=== PATIENT | male | born 1935 | race Caucasian/White ===

== ENCOUNTER 2016-12-16 08:42 | Inpatient (IN) | payer MEDICARE, OTHER ==
[~2016-12-16 08:42] MED LIST: Buffered Lidocaine 1% SYRIN* 3 ML/SYR SYRINGE INTRADERM ONE
[2016-12-16] MEDS ORDERED: Clindamycin 900 MG IVPREMIX(* 900 MG/50 ML SDV IV ONE (08:43)
[2016-12-16] MEDS ORDERED: Bacitracin IV* 50,000 UNITS INJ ONE (09:28)
[2016-12-16] MEDS ORDERED: Thrombin 5,000 UNITS* 1 APPLIC KIT - topical use - TOPICAL ONE (09:28)
[2016-12-16] MEDS ORDERED: Lidocain 1% EPI 1:100,000 * 30 ML MDV ONE (09:28)
[2016-12-16] MEDS ORDERED: Atracurium* 10 MG/ML 10 ML VIAL ONE (10:27)
[2016-12-16] MEDS ORDERED: fentaNYL* 50 MCG/ML 2 ML VIAL (100 MCG VIAL) ONE (10:27)
[2016-12-16] MEDS ORDERED: Ondansetron INJ* 2 MG/ML VIAL ONE (10:28)
[2016-12-16] MEDS ORDERED: Lidocaine 2% PF* 5 ML VIAL ONE (10:28)
[2016-12-16] MEDS ORDERED: Dexamethasone IV* 4 MG/ML 1 ML (4 MG) ONE (10:28)
[2016-12-16] MEDS ORDERED: Propofol* 10 MG/ML 20 ML BTL IV PUSH ONE ×2 (10:28→11:54)
[2016-12-16] MEDS ORDERED: Atropine 1MG/ML INJ* 1 ML VIAL ONE (10:54)
[2016-12-16] MEDS ORDERED: EPHEDrine (Pressors)* 50 MG/ML VIAL ONE (11:04)
[2016-12-16] MEDS ORDERED: Phenylephrine IV* 40 MCG/ML 10 ML SYRINGE ONE (11:08)
[2016-12-16] MEDS ORDERED: DiMENhydriNATE IV* 50 MG/ML VIAL IV PUSH PRN (11:37)
[2016-12-16] MEDS ORDERED: fentaNYL* 50 MCG/ML 2 ML VIAL (100 MCG VIAL) IV PRN (11:37)
[2016-12-16] MEDS ORDERED: Acetaminophen TAB* 325 MG PO PRN (11:55)
[2016-12-16] MEDS ORDERED: ALPRAZolam TAB* 0.5 MG PO PRN (11:57)
[2016-12-16] MEDS ORDERED: Morphine INJ* 4 MG/ML 1 ML SYRINGE IV PRN (12:04)
[2016-12-16] MEDS ORDERED: HYDROmorphone* 1 MG/ML 1 ML SYR ONE (13:04)
[2016-12-16] MEDS: HYDROmorphone* 1 MG/ML 1 ML SYR IV PRN ×2 (13:04→13:45)
--- NOTE | 2016-12-16 14:18 | RAD ---
INDICATION: Decompressive laminectomy L3-L4 COMPARISON: Lumbar spine August 07, 2016 TECHNIQUE: A single crosstable lateral portable view of the lumbar spine taken at 1100 hours is submitted FINDINGS: There are retractors and there is a hemostat projected over the posterior soft tissues at the L3-L4 level
[2016-12-16] MEDS: IPRATROPIUM BROMIDE BOTH NARES SCH ×3 (16:11→21:27)
[2016-12-16] MEDS: Sucralfate TAB* 1 GM PO SCH ×2 (16:11→21:26)
[2016-12-16] MEDS: HYDROcodone/ACETAMIN 5-325 MG* 1 TAB PO PRN ×2 (17:50→21:48)
[2016-12-16] MEDS: Omeprazole CAP* 20 MG PO SCH (21:26)
[2016-12-17] MEDS: HYDROcodone/ACETAMIN 5-325 MG* 1 TAB PO PRN ×3 (01:48→13:21)
[2016-12-17] MEDS: Levothyroxine TAB* 25 MCG TAB PO SCH (07:37)
[2016-12-17] MEDS: IPRATROPIUM BROMIDE BOTH NARES SCH ×3 (08:43→20:26)
[2016-12-17] MEDS: Omeprazole CAP* 20 MG PO SCH ×2 (08:44→20:26)
[2016-12-17] MEDS: Sucralfate TAB* 1 GM PO SCH ×3 (08:44→16:53)
[2016-12-17] MEDS: Montelukast Sodium TAB* 10 MG PO SCH (08:44)
[2016-12-17] MEDS: Cetirizine* 10 MG TAB PO SCH (08:44)
[2016-12-17] MEDS: Sertraline* 100 MG TAB PO SCH (08:44)
[2016-12-17] MEDS ORDERED: Atorvastatin* 10 MG TAB PO SCH (09:00)
[2016-12-17] MEDS ORDERED: Tamsulosin CAP* 0.4 MG PO SCH (09:00)
--- NOTE | 2016-12-17 09:25 | PN ---
Progress Note - Progress Note SOAP: Subjective: []POD # 1 C/O incisional pain Pre op leg pain better Objective: []Moderate wound drainage Neuro intact Assessment: []Satis post op course Plan: []will convert to inpatient Home when drainage slows
[2016-12-17] MEDS: Tamsulosin CAP* 0.4 MG PO SCH (18:42)
[2016-12-17] MEDS: Atorvastatin* 10 MG TAB PO SCH (20:26)
[2016-12-17] MEDS ORDERED: Ondansetron INJ* 2 MG/ML VIAL IV PRN (22:38)
[2016-12-17] MEDS ORDERED: Ondansetron INJ* 2 MG/ML VIAL ONE (22:44)
[2016-12-17] MEDS: Cyclobenzaprine TAB* 10 MG PO PRN (23:24)
[2016-12-18] MEDS: HYDROcodone/ACETAMIN 5-325 MG* 1 TAB PO PRN ×3 (03:50→20:02)
[2016-12-18] MEDS: Levothyroxine TAB* 25 MCG TAB PO SCH (07:38)
--- NOTE | 2016-12-18 08:09 | PN ---
Progress Note - Progress Note SOAP: Subjective: [This is an 81 year old male s/p decompressive lumbar laminectomy L3-4 for spinal stenosis POD #2. He complains of incisional back pain. Pre-operative lower extremity symptoms are improving. Per the nurse and patient's , he was confused last night after taking the [place]; not aware of location and who people were. He has also been slightly unsteady ambulating to and from the bathroom. He has not been ambulating outside of the room more than once. He is eating and drinking without difficulty. Pain managed with oral medications. ] Objective: [ Vital Signs: Temp Pulse Resp BP Pulse Ox 98.3 F 99 16 160/91 93 12/18/16 07:12 12/18/16 07:12 12/18/16 08:00 12/18/16 07:12 12/18/16 08:00 General: Alert and oriented. Laying in bed, no distress. ] Assessment: [Satisfactory post-op course. Unsteady ambulation. ] Plan: [1. PT to evaluate today. 2. Hopefully discharge home tomorrow. 3. Continue pain management. ]
[2016-12-18] MEDS: Sucralfate TAB* 1 GM PO SCH ×3 (08:14→16:57)
[2016-12-18] MEDS: IPRATROPIUM BROMIDE BOTH NARES SCH ×3 (09:01→20:55)
[2016-12-18] MEDS: Omeprazole CAP* 20 MG PO SCH ×2 (09:02→20:53)
[2016-12-18] MEDS: Cetirizine* 10 MG TAB PO SCH (09:02)
[2016-12-18] MEDS: Montelukast Sodium TAB* 10 MG PO SCH (09:02)
[2016-12-18] MEDS: Sertraline* 100 MG TAB PO SCH (09:02)
[2016-12-18] MEDS: Cyclobenzaprine TAB* 10 MG PO PRN (13:45)
[2016-12-18] MEDS: Tamsulosin CAP* 0.4 MG PO SCH (18:26)
[2016-12-18] MEDS: Atorvastatin* 10 MG TAB PO SCH (20:53)
[2016-12-19] MEDS: Sucralfate TAB* 1 GM PO SCH ×2 (05:56→11:00)
[2016-12-19] MEDS ORDERED: Levothyroxine TAB* 25 MCG TAB PO SCH (06:00)
[2016-12-19] MEDS: HYDROcodone/ACETAMIN 5-325 MG* 1 TAB PO PRN (07:03)
--- NOTE | 2016-12-19 07:43 | PN ---
Progress Note - Progress Note SOAP: Subjective: [This is an 81 year old male s/p decompressive lumbar laminectomy L3-4, POD# 3. He complains of soreness at the incision site. Pre-operative symptoms are improving. He is ambulating with assistance from staff and a rolling walker. He has been evaluated by PT. He is eating and drinking well. Denies headache, nausea, vomiting and chest pain. ] Objective: [ Vital Signs: Temp Pulse Resp BP Pulse Ox 97.6 F 86 18 146/85 94 12/19/16 03:15 12/19/16 03:15 12/19/16 07:16 12/19/16 03:15 12/19/16 07:16 General: Alert and oriented. No distress. Neuro: Motor and sensory intact. Incision: Intact and without infection. ZAKIA drain removed today. ZAKIA drain output 12/16/16 12/16/16 12/16/16 14:00 15:51 20:00 Output, ZAKIA #1 50 30 20 12/17/16 12/17/16 12/17/16 00:00 03:56 12:04 Output, ZAKIA #1 20 20 30 12/17/16 12/17/16 12/17/16 16:55 20:09 22:59 Output, ZAKIA #1 10 30 15 12/18/16 12/18/16 12/18/16 04:15 11:09 18:14 Output, ZAKIA #1 15 15 7 12/18/16 12/19/16 12/19/16 20:27 00:21 05:14 Output, ZAKIA #1 10 5 10 ] Assessment: [Satisfactory post-op. Pain well controlled with PO pain medications. ] Plan: [1. Discharge home today. 2. Discharge instructions including wound care and activity level were discussed with the patient.]
[2016-12-19] MEDS: Omeprazole CAP* 20 MG PO SCH (09:07)
[2016-12-19] MEDS: IPRATROPIUM BROMIDE BOTH NARES SCH (09:08)
[2016-12-19] MEDS: Sertraline* 100 MG TAB PO SCH (09:08)
[2016-12-19] MEDS: Montelukast Sodium TAB* 10 MG PO SCH (09:08)
[2016-12-19] MEDS: Cetirizine* 10 MG TAB PO SCH (09:08)
--- NOTE | 2016-12-19 11:48 | OP ---
OPERATIVE REPORT: DATE OF OPERATION: 12/16/16 DATE OF : 37 PRIMARY SURGEON: Woody Yoon MD MONUMENTAL STONEMASON: KIRAN Ramirez ANESTHESIA: General. PRE-OP DIAGNOSIS: Lumbar spinal stenosis, L3-4. POST-OP DIAGNOSIS: Lumbar spinal stenosis, L3-4. OPERATIVE PROCEDURE: Decompressive lumbar laminectomy, L3-4. DESCRIPTION OF OPERATION: After satisfactory general anesthesia was obtained, the patient was place d on the operating table in a prone position with the chest supported on the Kalia frame and the ba ck slightly flexed. The lumbar region was then clipped, prepped, and draped in a sterile manner for lumbar laminectomy and a skin incision outlined from L3-L4. This incision was infiltrated with 1% Xylocaine with epinephrine, after which it was turned down sharply to the level of the lumbar fascia . The fascia was divided along the spinous processes of L3 and L4, and the paraspinal musculature w as stripped away from these posterior elements using the periosteal elevator and monopolar cautery. An intraoperative x-ray was obtained verifying proper interspace localization after which the decom pression was begun by removing the spinous process of L3 and the superior aspect of the spinous proc ess of L4 with the Leksell rongeur. A Midas Eddi drill was then used to thin out the remaining porti on of the base of the spinous process of L3 as well as the medial facet complex. There was noted to be marked facet hypertrophy and overgrowth at this level. A decompression was then carried superio rly utilizing Kerrison rongeurs until the attachment of ligamentum flavum was taken down. The decom pression was carried out laterally with thickened ligament and bony overgrowth being removed. This was carried out until the L4 nerve roots were noted to be decompressed bilaterally. After assuring adequate hemostasis, wound was thoroughly irrigated after which a piece of Gelfoam was placed over t he laminectomy defect. A drain was placed in the epidural space and tunneled out toward the left si de. The fascia was reapproximated with 0 Vicryl suture. The subcutaneous tissue was closed with 3- 0 Vicryl suture and the skin closed with skin clips. The estimated blood loss was less than 50 cc a nd the final sponge, padding, and needle counts were correct. The patient was taken to the recovery room, extubated and in stable condition. [id number]/[facility] #: [id number]
[2016-12-19 11:51] VITALS: BP 122/88
--- NOTE | 2016-12-20 01:25 | DS ---
DISCHARGE SUMMARY: DATE OF ADMISSION: 12/16/16 DATE OF DISCHARGE: 12/19/16 DISCHARGE DIAGNOSES: 1. Lumbar spinal stenosis. 2. Hypothyroidism. 3. Gastroesophageal reflux disease. SPECIAL PROCEDURE: Decompressive lumbar laminectomy at L3-4. HOSPITAL COURSE: This 81-year-old male was seen in the office with signs and symptoms of lumbar rad iculopathy consistent with spinal stenosis at L3-4. He failed to improve with conservative treatmen t and was admitted at this time for elective surgical intervention. On the day of admission, he was taken to surgery where under general anesthesia, a decompressive lumbar laminectomy at L3-4 operati on was carried out. Postoperatively, he was feeling well. Pain was well controlled with oral pain medication. He is ambulating with assistance from a walker. He was seen by Physical Therapy, evalu ated and treated. He is eating, drinking and voiding without difficulty. On the third postoperativ e day, he was discharged home to the care of his family. Discharge instructions including wound car e and activity level were discussed with the patient and provided. He will be seen in the office in approximately 7 to 10 days for followup and staple removal. DISCHARGE MEDICATIONS: [place] 5/325 mg 2 tabs by mouth every 4 hours as needed for pain. KIRAN GANNON [id number]/[facility] #: [id number]
== END 2016-12-19 12:40 | disposition home or self-care (01) | DRG 517 ==
LOC: OR 08:42 → SSU 09:22 → OBSVTOIN 12-17 09:22
PROVIDERS: ADMIT Neurological Surgery; ATTEND Neurological Surgery
PROC: 01NB0ZZ Release Lumbar Nerve, Open Approach (ICD-10-PCS; principal; 2016-12-19)
DX: M48.06 Spinal stenosis, lumbar region (principal); E03.9 Hypothyroidism, unspecified; K21.9 Gastro-esophageal reflux disease without esophagitis; M54.16 Radiculopathy, lumbar region; E66.9 Obesity, unspecified; N40.0 Benign prostatic hyperplasia without lower urinary tract symptoms; F41.9 Anxiety disorder, unspecified; Z88.0 Allergy status to penicillin; Z88.5 Allergy status to narcotic agent; Z88.8 Allergy status to other drugs, medicaments and biological substances; Z91.041 Radiographic dye allergy status; Z87.891 Personal history of nicotine dependence; Z68.32 Body mass index [BMI] 32.0-32.9, adult
CPT/HCPCS: 72100; A9270-GY; J0461; J1100; J1170; J2405; J2704; J3010

== ENCOUNTER 2018-03-31 06:09 | Day surgery (SDC) | payer MEDICARE, OTHER ==
--- NOTE | 2018-03-29 23:58 | HP ---
CC: Dr. Jones; Dr. Singletary * ADMITTING HISTORY AND PHYSICAL: DATE OF ADMISSION: 03/31/18 ADMITTING DIAGNOSIS: Bladder tumor. PLANNED PROCEDURE: Transurethral resection of bladder tumor. ADMITTING HISTORY AND PHYSICAL: John Morse is an 82-year-old gentleman who had initially undergone surgery for a superficial bladder cancer in 2007. 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 PAST MEDICAL HISTORY: Significant for: 1. Superficial bladder cancer. 2. BPH. 3. Coronary artery atheroma. 4. Spinal stenosis. 5. Mixed hyperlipidemia. 6. Osteoarthritis. 7. Chronic pain syndrome. 8. Hypothyroidism. MEDICATIONS: On admission include: 1. Ambien 5 mg at bedtime. 2. Finasteride 5 mg a day. 3. Toprol-XL 25 mg a day. 4. Omeprazole 40 mg b.i.d. 5. Methylphenidate 10 mg 1 tablet by mouth once or twice a day as needed. 6. Sertraline 50 mg daily. 7. Montelukast 10 mg daily. 8. Simvastatin 20 mg daily. 9. Fexofenadine 180 mg daily. 10. Naproxen 500 mg twice a day. 11. Levothyroxine 25 mcg daily. ALLERGIES AND INTOLERANCES: PENICILLIN, INTRAVENOUS CONTRAST, SEPTRA, OXYCODONE , BIAXIN and PERCOCET. PHYSICAL EXAMINATION GENERAL: Reveals a pleasant, elderly gentleman. VITAL SIGNS: Blood pressure is 142/86, pulse 60 per minute and regular, temperature 97.5, oxygen saturation 98% on room air. LUNGS: Clear bilaterally. CARDIOVASCULAR: Regular rate and rhythm. S1, S2. ABDOMEN: Soft without masses. IMPRESSION: An 82-year-old gentleman with recurrent superficial bladder tumor. PLAN: Planned procedure is transurethral resection of bladder. [id number]/[facility] #: [id number] MTDD
[~2018-03-31 06:09] MED LIST changes: +Buffered Lidocaine 0.9% SYRIN* 5 ML/SYR SYRINGE INTRADERM ONE; -Buffered Lidocaine 1% SYRIN* 3 ML/SYR SYRINGE INTRADERM ONE; +Dexamethasone IV* 4 MG/ML 1 ML (4 MG) IV SLOW PU ONE; +Ondansetron ODT TAB* 4 MG PO ONE
[2018-03-31] MEDS ORDERED: Dexamethasone IV* 4 MG/ML 1 ML (4 MG) ONE (06:10)
[2018-03-31] MEDS ORDERED: Buffered Lidocaine 0.9% SYRIN* 5 ML/SYR SYRINGE ONE (06:11)
[2018-03-31] MEDS ORDERED: Levofloxacin 500 MG IVPREMIX(* 500 MG/100 ML BAG IVPB ONE (06:11)
[2018-03-31] MEDS ORDERED: Ondansetron ODT TAB* 4 MG ONE (06:11)
[2018-03-31] MEDS ORDERED: Metoprolol Succinate XL TAB* 25 MG PO ONE (07:00)
[2018-03-31] MEDS ORDERED: Bupivacaine-MPF SPINAL* 7.5 MG/ML - 2ML AMP ONE (07:05)
[2018-03-31] MEDS ORDERED: Midazolam* 1 MG/ML 5 ML VIAL (5 MG) ONE (07:05)
[2018-03-31] MEDS ORDERED: Lidocaine 2% PF * 5 ML VIAL ONE (07:05)
[2018-03-31] MEDS ORDERED: Propofol* 10 MG/ML 20 ML BTL IV PUSH ONE (07:05)
[2018-03-31] MEDS ORDERED: fentaNYL* 50 MCG/ML 2 ML VIAL (100 MCG VIAL) ONE (07:05)
[2018-03-31] MEDS ORDERED: Phenylephrine INJ* 10 MG/ML 1 ML VIAL (10 MG) ONE (07:07)
[2018-03-31] MEDS ORDERED: EPHEDrine (Pressors)* 50 MG/ML VIAL ONE (07:07)
[2018-03-31] MEDS ORDERED: Bupivacaine 0.5% SDV PF* 30ML VIAL ONE (07:12)
[2018-03-31] MEDS ORDERED: Chloroprocaine 2%* 20 ML VIAL ONE (07:12)
[2018-03-31] MEDS ORDERED: fentaNYL* 50 MCG/ML 2 ML VIAL (100 MCG VIAL) IV PRN (08:06)
[2018-03-31] MEDS ORDERED: Ondansetron INJ* 2 MG/ML VIAL IV PRN (08:06)
[2018-03-31] MEDS ORDERED: HYDROmorphone INJ* 1 MG/ML CARPUJECT SYRINGE IV PRN (08:06)
[2018-03-31] MEDS ORDERED: Naloxone* 0.4 MG/ML 1 ML VIAL IV PRN (08:06)
[2018-03-31] MEDS ORDERED: Furosemide IV* 10 MG/ML 2 ML VIAL (20 MG) ONE (08:08)
[2018-03-31] MEDS ORDERED: mitoMYcin PWD* 40 MG in Sterile Water for Inj* 40 ML IRRIGATION ONE (10:00)
[2018-03-31 11:51] VITALS: BP 154/78
--- NOTE | 2018-03-31 22:24 | OP ---
CC: Dr. Pinto * DATE OF OPERATION: 03/31/18 - [facility] DATE OF : 37 SURGEON: Bart Garnett MD ANESTHESIOLOGIST: Dr. Lorenz. ANESTHESIA: Spinal. PRE-OP DIAGNOSIS: Bladder tumor. POST-OP DIAGNOSIS: Bladder tumor. OPERATIVE PROCEDURE: 1. Cystoscopy. 2. Transurethral resection and fulguration of bladder tumors (approximately 2.5 to 3 cm). COMPLICATIONS: None. POSTOPERATIVE CONDITION: Stable. ESTIMATED BLOOD LOSS: Minimal. OPERATIVE FINDINGS: Low grade superficial papillary tumor, right lateral wall of bladder. No evidence of invasive or higher grade tumor on visual appearance. INDICATIONS: John Morse is an 82-year-old gentleman with a history of superficial bladder cancer, he was recently seen in followup and on office cystoscopy was noted to have recurrent bladder tumor. DESCRIPTION OF PROCEDURE: After induction of spinal anesthesia, the patient was placed in dorsal lithotomy position, sequential compression devices were in place and functioning. Initial cystoscopy revealed a normal appearing urethra. There was mild apical prostate tissue, but the bladder neck appeared open. The bladder was examined in the right lateral wall. There was cluster with one larger tumor and a few smaller tumors adjacent to it. All of these had an appearance consistent with superficial, pathologic transitional cell carcinoma. There was no evidence of any invasive appearing tumor. Pegger biopsies were obtained and sent for histopathology. Next, a resectoscope was introduced and all visible tumor was resected down to muscle. Hemostasis appeared satisfactory at the end of the procedure and there was no evidence of bladder perforation. A 20-Luxembourger Chris catheter was placed for temporary bladder drainage. The patient tolerated the procedure satisfactorily and was transferred back to the recovery area in stable condition. [id number]/[facility] #: [id number] [facility]
== END 2018-03-31 11:55 | disposition home or self-care (01) ==
LOC: OR 06:09
PROVIDERS: ATTEND Urology
DX: C67.2 Malignant neoplasm of lateral wall of bladder (principal); N40.0 Benign prostatic hyperplasia without lower urinary tract symptoms; E78.2 Mixed hyperlipidemia; M19.90 Unspecified osteoarthritis, unspecified site; E03.9 Hypothyroidism, unspecified; G89.29 Other chronic pain; Z88.0 Allergy status to penicillin; I25.10 Atherosclerotic heart disease of native coronary artery without angina pectoris; F41.8 Other specified anxiety disorders
CPT/HCPCS: 88305; A9270-GY; J1100; J1940; J1956; J2250; J2400; J2704; J3010; J9280

== ENCOUNTER 2019-02-16 06:39 | Day surgery (SDC) | payer MEDICARE, OTHER ==
[~2019-02-16 06:39] MED LIST changes: +Acetaminophen TAB* 325 MG PO PRN; -Buffered Lidocaine 0.9% SYRIN* 5 ML/SYR SYRINGE INTRADERM ONE; +Buffered Lidocaine 1% SYRIN* 1 ML/SYRINGE INTRADERM ONE; -Dexamethasone IV* 4 MG/ML 1 ML (4 MG) IV SLOW PU ONE; -Ondansetron ODT TAB* 4 MG PO ONE
[2019-02-16] MEDS ORDERED: Midazolam* 1 MG/ML 2 ML VIAL (2 MG) ONE (13:42)
[2019-02-16] MEDS ORDERED: Povidone Iodine 5% OPTH* 30 ML BTL ONE (14:13)
[2019-02-16] MEDS ORDERED: Phenylephrine OPHTH SOL 2.5%* 2 ML ONE (14:13)
[2019-02-16] MEDS ORDERED: Ketorolac 0.5% OPHTH (NF) 0.5 % 5 ML BTL ONE (14:13)
[2019-02-16] MEDS ORDERED: Lidocaine 1%* 5 ML VIAL ONE (14:13)
[2019-02-16] MEDS ORDERED: Lidocaine 2% EPI 1:200000 MPF*10-20 ML VIAL ONE (14:13)
[2019-02-16] MEDS ORDERED: Neomycin/Polymy/Dex OPTH.SUSP* MAXITROL 0.1% 5 ML ONE (14:13)
[2019-02-16] MEDS ORDERED: Cyclopentolate 1% OPTH.SOL* 2 ML BTL ONE (14:13)
[2019-02-16] MEDS ORDERED: Proparacaine 0.5% OPHTH.SOL* 15 ML BTL ONE (14:13)
[2019-02-16 14:36] VITALS: BP 133/93
--- NOTE | 2019-02-16 18:36 | OP ---
DATE OF OPERATION: 02/16/19 FOR[facility] DATE OF : 37 SURGEON: Richar Flowers MD PREOPERATIVE DIAGNOSIS: Cataract, left eye. POSTOPERATIVE DIAGNOSIS: Cataract, left eye. OPERATIVE PROCEDURE: Extracapsular cataract extraction with intraocular lens implant left eye. DESCRIPTION OF PROCEDURE: The patient was brought to the operating room after being given 1/2% Alcaine with epinephrine drops in the preoperative area. The eye was prepped and draped in the usual sterile fashion. Sterile drape and eyelid speculum were placed. Again, topical 1/2% Alcaine with epinephrine was given. A paracentesis incision was made at the 3 o'clock position with the No.75 blade. Clear cornea incision 2.2 x 2.2-mm was created at the 6 o'clock position starting at the anterior limbus using the 2.2-mm keratome. The anterior chamber was irrigated with 0.4 mL of 1% non-preservative intracameral lidocaine and filled with DisCoVisc. A capsulorrhexis was completed using the cystotome and the Utrata forceps. Hydrodissection was performed with balanced salt solution. The lens nucleus was removed with the Phacoemulsification handpiece without incident. Cortex was removed with the irrigation-aspiration handpiece. The capsular bag was re-inflated using DisCoVisc and an SN60WF 19.5 implant was inserted with the shooter. The irrigation-aspiration handpiece was used to remove all residual DisCoVisc. The eye was refilled with balanced salt solution and the wound checked and found to be watertight. Topical Maxitrol drops were given. [id number]/[facility] #: [id number] [facility]
== END 2019-02-16 14:46 | disposition home or self-care (01) ==
LOC: OREAST 06:39
PROVIDERS: ATTEND Specialist
DX: H25.812 Combined forms of age-related cataract, left eye (principal); H47.323 Drusen of optic disc, bilateral; Z87.891 Personal history of nicotine dependence; Z88.0 Allergy status to penicillin; E03.9 Hypothyroidism, unspecified; K21.9 Gastro-esophageal reflux disease without esophagitis; E78.00 Pure hypercholesterolemia, unspecified; I25.10 Atherosclerotic heart disease of native coronary artery without angina pectoris; Z85.51 Personal history of malignant neoplasm of bladder
CPT/HCPCS: A9270-GY; J2250; V2632

== ENCOUNTER 2019-02-23 09:55 | Day surgery (SDC) | payer MEDICARE, OTHER ==
[~2019-02-23 09:55] MED LIST changes: -Acetaminophen TAB* 325 MG PO PRN
[2019-02-23] MEDS ORDERED: Midazolam* 1 MG/ML 2 ML VIAL (2 MG) ONE (11:03)
[2019-02-23] MEDS ORDERED: fentaNYL* 50 MCG/ML 2 ML VIAL (100 MCG VIAL) ONE (12:17)
[2019-02-23] MEDS ORDERED: Lidocaine 2% EPI 1:200000 MPF*10-20 ML VIAL ONE (13:14)
[2019-02-23] MEDS ORDERED: Proparacaine 0.5% OPHTH.SOL* 15 ML BTL ONE (13:14)
[2019-02-23] MEDS ORDERED: Neomycin/Polymy/Dex OPTH.SUSP* MAXITROL 0.1% 5 ML ONE (13:14)
[2019-02-23] MEDS ORDERED: Povidone Iodine 5% OPTH* 30 ML BTL ONE (13:14)
[2019-02-23] MEDS ORDERED: Lidocaine 1%* 5 ML VIAL ONE (13:14)
[2019-02-23] MEDS ORDERED: Phenylephrine OPHTH SOL 2.5%* 2 ML ONE (13:14)
[2019-02-23] MEDS ORDERED: Ketorolac 0.5% OPHTH (NF) 0.5 % 5 ML BTL ONE (13:14)
[2019-02-23] MEDS ORDERED: Cyclopentolate 1% OPTH.SOL* 2 ML BTL ONE (13:14)
[2019-02-23 13:16] VITALS: BP 158/68
--- NOTE | 2019-02-23 13:48 | OP ---
OPERATIVE NOTE: DATE OF OPERATION: 02/23/19 DATE OF : 37 SURGEON: Richar Flowers M.D. PREOPERATIVE DIAGNOSIS: Cataract, right eye. POSTOPERATIVE DIAGNOSIS: Cataract, right eye. OPERATIVE PROCEDURE: Extracapsular cataract extraction with intraocular lens implant, right eye. PROCEDURE: The patient was brought to the operating room after being given 1/2% Alcaine with epineph rine drops in the preoperative area. The eye was prepped and draped in the usual sterile fashion. S terile drape and eyelid speculum were placed. Again, topical 1/2% Alcaine with epinephrine was given . A paracentesis incision was made at the 9 o'clock position with the No.75 blade. Clear cornea inc ision 2.2 x 2.2-mm was created at the 12 o'clock position starting at the anterior limbus using the 2 .2-mm keratome. The anterior chamber was irrigated with 0.4 mL of 1% non-preservative intracameral l idocaine and filled with DisCoVisc. A capsulorrhexis was completed using the cystotome and the Utrat a forceps. Hydrodissection was performed with balanced salt solution. The lens nucleus was removed w ith the Phacoemulsification handpiece without incident. Cortex was removed with the irrigation-aspir ation handpiece. The capsular bag was re-inflated using DisCoVisc and an [id number] 20 implant was inser matt with the shooter. The irrigation-aspiration handpiece was used to remove all residual DisCoVisc. The eye was refilled with balanced salt solution and the wound checked and found to be watertight. Topical Maxitrol drops were given. [id number]/[facility] #: [id number]
== END 2019-02-23 13:31 | disposition home or self-care (01) ==
LOC: OREAST 09:55
PROVIDERS: ATTEND Specialist
DX: H25.811 Combined forms of age-related cataract, right eye (principal); H47.323 Drusen of optic disc, bilateral; C67.9 Malignant neoplasm of bladder, unspecified; Z88.0 Allergy status to penicillin; K21.9 Gastro-esophageal reflux disease without esophagitis; M35.3 Polymyalgia rheumatica; G47.33 Obstructive sleep apnea (adult) (pediatric); E03.9 Hypothyroidism, unspecified
CPT/HCPCS: A9270-GY; J2250; J3010; V2632

== ENCOUNTER 2019-04-14 15:06 | Inpatient (IN) | payer MEDICARE, OTHER ==
[2019-04-14 17:57] LABS: ABS Basophils 0.1 10^3/ul (0-0.2); ABS Eosinophils 0.2 10^3/ul (0-0.6); ABS Lymphocytes 2.2 10^3/ul (1.0-4.8); ABS Monocytes 0.7 10^3/ul (0-0.8); Eosinophil % 2.7 %; Hematocrit 41 % (42-52); Lymphocyte % 23.5 %; Mean Corpuscular HGB Conc 34 g/dL (31-36); Mean Corpuscular Hemoglobin 31 pg (27-31); Mean Corpuscular Volume 91 fL (80-94); Mean Platelet Volume 9.4 fL (7.4-10.4); Platelet Count 177 10^3/uL (150-450); Red Blood Count 4.47 10^6 /uL (4.18-5.48); Red Cell Distribution Width 15 % (10-15); White Blood Count 9.3 10^3/uL (3.5-10.8)
[2019-04-14 18:16] LABS: Albumin 4.2 g/dL (3.2-5.2); Albumin/Globulin Ratio 1.4 (1-3); BUN/Creatinine Ratio 15.9 (8-20); Calcium 9.5 mg/dL (8.6-10.3); EGFR African American 59.7 (>60); EGFR Non-African American 49.3 (>60); Globulin 2.9 g/dL (2-4); Magnesium 2.1 mg/dL (1.9-2.7); Potassium 4.5 mmol/L (3.5-5.0); Total Bilirubin 0.6 mg/dL (0.2-1.0); Total Protein 7.1 g/dL (6.4-8.9)
[2019-04-14 18:30] LABS: TSH (Thyroid Stimulating Horm) 1.53 mcIU/mL (0.34-5.60)
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
[2019-04-14 22:03] LABS: Urine Appearance Cloudy; Urine Bacteria Absent (Absent); Urine Bilirubin Negative (Negative); Urine Blood Negative (Negative); Urine Color Yellow; Urine Glucose Negative (Negative); Urine Ketones Negative (Negative); Urine Nitrite Negative (Negative); Urine Protein Negative (Negative); Urine Red Blood Cell Absent (Absent); Urine Specific Gravity 1.024 (1.010-1.030); Urine Squamous Epithelial Cell Present (Absent); Urine Urobilinogen Negative (Negative); Urine White Blood Cell 3+(>20/hpf) (Absent)
[2019-04-15] MEDS ORDERED: Acetaminophen TAB* 325 MG PO PRN (00:36)
[2019-04-15] MEDS ORDERED: LIDOCAINE TOPICAL PRN (00:38)
[2019-04-15] MEDS ORDERED: Docusate CAP* 100 MG PO PRN (00:38)
[2019-04-15] MEDS ORDERED: MENTHOL TOPICAL PRN (00:38)
[2019-04-15] MEDS: HYDROcodone/ACETAMIN 5-325 MG* 1 TAB PO PRN ×2 (05:36→19:16)
[2019-04-15] MEDS: Levothyroxine TAB* 25 MCG TAB PO SCH (05:37)
[2019-04-15] MEDS ORDERED: Metoprolol Succinate XL TAB* 25 MG PO SCH (09:00)
[2019-04-15] MEDS: Sucralfate TAB* 1 GM PO SCH ×2 (09:55→20:55)
[2019-04-15] MEDS: Pantoprazole TAB * 40 MG TAB PO SCH ×2 (09:56→20:55)
[2019-04-15] MEDS: Sertraline* 50 MG TAB PO SCH (09:57)
[2019-04-15] MEDS: Cholecalciferol TAB* 1000 UNITS PO SCH (09:58)
--- NOTE | 2019-04-15 10:14 | HP ---
CC: Dr. Orta; Dr. Pinto * ADMISSION HISTORY AND PHYSICAL: DATE OF ADMISSION: 04/15/19 CHIEF COMPLAINT: Back pain. HISTORY OF PRESENT ILLNESS: Mr. Morse is an 83-year-old man who has had increasing falls recently without a clear etiology. He had a fall on Thursday 4 days prior to admission and has had pain in the right side of his chest since then. Prior to Thursday, he has had falls for a month and has been to Physical Therapy to improve his gait. He was given a walker, but was not using this until after the most recent fall, where he now agrees to use it. Since the fall on Thursday, he has been complaining of 5 to 6/10 lower back pain as well. The patient has tried multiple [id number] medications for pain, which has not been very helpful. PAST MEDICAL HISTORY: Includes BPH, superficial bladder cancer, coronary artery disease, spinal stenosis, hyperlipidemia, hypothyroidism, osteoarthritis , chronic back pain, and recently diagnosed B12 deficiency. PAST SURGICAL HISTORY: Partial thyroidectomy, bladder tumor, resection; transurethral approach, lumbar laminectomy with Dr. Yoon. MEDICATIONS ON ADMISSION: 1. Acetaminophen as needed. 2. Vitamin D 1000 units p.o. daily. 3. Fexofenadine 180 mg p.o. daily. 4. Finasteride 5 mg p.o. q.p.m. 5. Icy Hot gel as needed topically. 6. Ipratropium nasal spray 2 sprays both nostrils 4 times a day as needed. 7. Levothyroxine 25 mcg p.o. q.a.m. 8. Icy Hot patches as needed. 9. Metoprolol XL 25 mg p.o. q.a.m. 10. Montelukast 10 mg p.o. q.p.m. 11. Naproxen 500 mg p.o. b.i.d. p.r.n. pain. 12. Omeprazole 40 mg p.o. b.i.d. 13. Sertraline 150 mg p.o. q.a.m. 14. Simvastatin 20 mg p.o. q.p.m. 15. Sucralfate 1 g p.o. b.i.d. ALLERGIES: IV CONTRAST, BIAXIN, OXYCODONE and SEPTRA. FAMILY HISTORY: Notable for mother with Alzheimer's, father unknown, no siblings. 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 He is . He has 4 children. He is an ex-smoker. His alcohol use is rare. No recreational drugs. REVIEW OF SYSTEMS: The patient denies any fevers or anorexia. The patient denies any left sided chest pain, but has some right sided chest pain since the fall. The patient denies any cough or shortness of breath. The patient denies any nausea, vomiting, diarrhea, constipation or abdominal pain. He saw Dr. Barajas recently for the frequent falls and was diagnosed with B12 deficiency. Remainder of the 14- point review of systems was negative other than mentioned in the HPI. PHYSICAL EXAMINATION GENERAL: He is alert, in no acute distress. VITAL SIGNS: Temperature is 36.3, pulse is 59 to 70, respirations are 18, blood pressure is 155/79, O2 sat is 92%. HEENT: Head is normocephalic, and atraumatic. Sclerae anicteric. Pupils equal, round and reactive to light and accommodation. Oropharynx is moist. No lesions. NECK: No JVD, no carotid bruits, no thyromegaly. LUNGS: Clear to auscultation and percussion bilaterally. HEART: Regular, rate and rhythm without murmurs or gallops. ABDOMEN: Soft, nontender. Positive bowel sounds. No hepatosplenomegaly. EXTREMITIES: No peripheral edema. Dorsalis pedis pulses are 1+ bilaterally. NEUROLOGIC: Cranial nerves II through XII are intact. Motor strength is 5/5 throughout. Deep tendon reflexes are absent in the bilateral lower extremities. Alert and oriented x3. DIAGNOSTIC STUDIES/LAB DATA: Sodium 136, potassium 4.5, chloride 103, and bicarb 27. BUN 22, creatinine 1.3, glucose 111, calcium 9.5. AST 12 and ALT 8. Troponin 0.00. TSH 1.53. White count 9.3, hemoglobin 14.0, hematocrit 41% , and platelets are 177. Urinalysis was 3+ leukocyte esterase, 3+ white cells, negative nitrites, and positive squamous cells. CT of the chest shows a T10 oblique fracture with extension into the T10-T11 disk space. CT of the C-spine is negative for acute fracture or dislocation. Lumbar spine CT shows an old L4 compression fracture. Head CT is negative for infarct or bleed. ASSESSMENT AND PLAN: An 83-year-old man with compression fracture of the T10 region, which is not compression fracture and could impinge anteriorly onto the spinal cord. The patient will be admitted for observation and pain control. He will have MRI of the thoracic spine in the morning to assess for the integrity of ligaments. The patient will have consultation with Dr. Orta in the morning as well and can go home with the braces. No surgery is needed. For hypothyroidism, the patient will continue on the same dose of levothyroxine. For abnormal UA, we will follow the cultures and see if he has UTI. Treating UTI could improve his gait. For frequent falls, he was advised strongly to always use his walker to prevent falls. The patient agrees to do this. Code status is full. DVT prophylaxis will be with sequential compression devices. We will avoid heparin due to the possibility of neurosurgery. [id number]/[facility] #: [id number] RUPA
--- NOTE | 2019-04-15 10:38 | PN ---
Subjective Date of Service: 04/15/19 Interval History: Received call from RN that patient is orthostatic. Please see vital signs. He also reports dizziness during orthostatic vital sign assessment. Patient evaluated at bedside with present. Patient reports prior to admission he got up to fast, got dizzy, and fell onto right side. Continued right sided pain is what brought him. He reports he has been dealing with headaches for several years and is seeing Dr Barajas. He reports he has been dealing with increase in fatigue and dizziness/falls when changed position for several months. He reports he has never "blacked out" or lost consciousness. He reports he told Dr Garnett this and Proscar was stopped March 29, but he has not seen an improvement in his fatigue or dizziness/falls. Patient currently denies dizziness, cp, sob, visual changes, weakness, fever, chills. Objective Active Medications: Acetaminophen (Tylenol Tab*) 650 mg PO Q4H PRN PRN Reason: FEVER/HEADACHE Hydrocodone Bitart/Acetaminophen ([place] 5-325 Tab*) 1 tab PO Q4H PRN PRN Reason: PAIN - MODERATE Last Admin: 04/15/19 05:36 Dose: 1 tab Atorvastatin Calcium (Lipitor*) 10 mg PO QPM [facility] Cholecalciferol (Vitamin D Tab*) 1,000 units PO QAM [facility] Last Admin: 04/15/19 09:58 Dose: 1,000 units Cyanocobalamin (Vitamin B12 Inj *) 1,000 mcg IM Q30D [facility] Docusate Sodium (Colace Cap*) 100 mg PO BID PRN PRN Reason: CONSTIPATION Levothyroxine Sodium (Synthroid Tab*) 25 mcg PO 0600 [facility] Last Admin: 04/15/19 05:37 Dose: 25 mcg Metoprolol Succinate (Toprol Xl Tab*) 25 mg PO QAM [facility] Last Admin: 04/15/19 09:58 Dose: 25 mg (Lidocaine/Menthol [ Icy Hot 4%-1% Patch] ) 1 patch TOPICAL DAILY PRN PRN Reason: PAIN Pantoprazole Sodium (Protonix Tab*) 40 mg PO BID [facility] Last Admin: 04/15/19 09:56 Dose: 40 mg Sertraline HCl (Zoloft*) 150 mg PO QAM [facility] Last Admin: 04/15/19 09:57 Dose: 150 mg Sucralfate (Carafate*) 1 gm PO BID [facility] Last Admin: 04/15/19 09:55 Dose: 1 gm Vital Signs - 8 hr 04/15/19 04/15/19 04/15/19 03:30 05:36 07:35 Temperature 97.4 F Pulse Rate 86 Respiratory 16 18 18 Rate Blood Pressure 166/65 (mmHg) O2 Sat by Pulse 94 Oximetry 04/15/19 04/15/19 04/15/19 07:39 08:00 08:45 Temperature 97.7 F Pulse Rate 80 82 Respiratory 16 16 Rate Blood Pressure 121/58 126/72 (mmHg) O2 Sat by Pulse 93 Oximetry 04/15/19 04/15/19 08:47 08:49 Temperature Pulse Rate 94 89 Respiratory Rate Blood Pressure 119/65 86/50 (mmHg) O2 Sat by Pulse Oximetry Oxygen Devices in Use Now: None Appearance: Comfortable, NAD Eyes: No Scleral Icterus, PERRLA Ears/Nose/Mouth/Throat: Clear Oropharnyx, Mucous Membranes Moist Neck: NL Appearance and Movements; NL JVP Respiratory: Symmetrical Chest Expansion and Respiratory Effort, Clear to Auscultation Cardiovascular: NL Sounds; No Murmurs; No JVD, RRR, No Edema Abdominal: NL Sounds; No Tenderness; No Distention Lymphatic: No Cervical Adenopathy Extremities: No Clubbing, Cyanosis Skin: No Rash or Ulcers Neurological: Alert and Oriented x 3, NL Sensation, NL Muscle Strength and Tone , - - Cranial nerves grossly intact. Coordination intact. Nutrition: Taking PO's Result Diagrams: 04/14/19 17:48 04/14/19 17:48 Additional Lab and Data: Laboratory Tests 04/14/19 04/14/19 04/14/19 17:48 17:48 17:48 WBC 9.3 RBC 4.47 Hgb 14.0 Hct 41 L MCV 91 MCH 31 MCHC 34 RDW 15 Plt Count 177 MPV 9.4 Neut % (Auto) 65.0 Lymph % (Auto) 23.5 [place] % (Auto) 7.5 Eos % (Auto) 2.7 Baso % (Auto) 1.3 Absolute Neuts (auto) 6.0 Absolute Lymphs (auto) 2.2 Absolute Monos (auto) 0.7 Absolute Eos (auto) 0.2 Absolute Basos (auto) 0.1 Absolute Nucleated RBC 0.0 Nucleated RBC % 0.0 Sodium 136 Potassium 4.5 Chloride 103 Carbon Dioxide 27 Anion Gap 6 BUN 22 Creatinine 1.38 H Est GFR ( Amer) 59.7 Est GFR (Non-Af Amer) 49.3 BUN/Creatinine Ratio 15.9 Glucose 111 H Lactic Acid 0.8 Calcium 9.5 Magnesium 2.1 Total Bilirubin 0.60 AST 12 L ALT 8 Alkaline Phosphatase 82 Troponin I 0.00 Total Protein 7.1 Albumin 4.2 Globulin 2.9 Albumin/Globulin Ratio 1.4 TSH 1.53 Urine Color Urine Appearance Urine pH Ur Specific [place] Urine Protein Urine Ketones Urine Blood Urine Nitrate Urine Bilirubin Urine Urobilinogen Ur Leukocyte Esterase Urine WBC (Auto) Urine RBC (Auto) Ur Squamous Epith Cells Urine Bacteria Hyaline Casts Urine Glucose 04/14/19 21:55 WBC RBC Hgb Hct MCV MCH MCHC RDW Plt Count MPV Neut % (Auto) Lymph % (Auto) [place] % (Auto) Eos % (Auto) Baso % (Auto) Absolute Neuts (auto) Absolute Lymphs (auto) Absolute Monos (auto) Absolute Eos (auto) Absolute Basos (auto) Absolute Nucleated RBC Nucleated RBC % Sodium Potassium Chloride Carbon Dioxide Anion Gap BUN Creatinine Est GFR ( Amer) Est GFR (Non-Af Amer) BUN/Creatinine Ratio Glucose Lactic Acid Calcium Magnesium Total Bilirubin AST ALT Alkaline Phosphatase Troponin I Total Protein Albumin Globulin Albumin/Globulin Ratio TSH Urine Color Yellow Urine Appearance Cloudy Urine pH 5.0 Ur Specific [place] 1.024 Urine Protein Negative Urine Ketones Negative Urine Blood Negative Urine Nitrate Negative Urine Bilirubin Negative Urine Urobilinogen Negative Ur Leukocyte Esterase 3+ A Urine WBC (Auto) 3+(>20/hpf) A Urine RBC (Auto) Absent Ur Squamous Epith Cells Present A Urine Bacteria Absent Hyaline Casts Present A Urine Glucose Negative Assess/Plan/Problems-Billing Assessment: 83 yr old male with pmh of BPH, bladder cancer, cad, spinal stenosis, hld, hypothyroid, oa, back pain, vitamin b12 deficiency; who presented to ED with pain in right chest after a fall 4 days ago. - Patient Problems (1) Falls Comment: - Patient has seen Dr Barajas as outpatient for headaches and falls per [facility]. - Could be secondary to orthostatsis - Proscar was stopped by Urology and patient has not see improvement. - We will trial stopping beta dominguez and see if this helps. We will keep patient on monitor to watch for rebound tachycardia. If BP elevated we can consider adding a different agent like APRIL at low dose. - PT/OT consulting (2) Compression fracture of T10 vertebra Comment: - Neurosurg consulting and we appreciate their assistance - Plan for conservative treatment with TSLO brace and repeat imaging tomorrow (3) Orthostatic hypotension Comment: - Appears euvolemic - Trial stopping BB and monitoring BP - Echo revealed EF 55% to 60% and grade 1 diastolic dysfuntion (4) BPH (benign prostatic hyperplasia) Comment: - Currently not on medications as Urology stopped Proscar - Monitor for retention - Follow up with Urology after discharge (5) CAD (coronary artery disease) Comment: - Cont statin (6) HLD (hyperlipidemia) Comment: - Cont statin (7) Vitamin B 12 deficiency Comment: - Reports he was recently diagnosed with Vitamin B12 Deficiency and was being treated with injections - Vit[place] B12 level added to labs (8) DVT prophylaxis Comment: - Conservative tx decided for fx, therefore, heparin initiated for dvt prophylaxis Attending: Wendy Franco
--- NOTE | 2019-04-15 13:14 | ECHO ---
*[facility]* [place] [address] Fax #: [phone] Transthoracic Echocardiogram Patient: John Morse : 1935 Study Date: 04/15/2019 Age: 83 Gender: M HR: 74 bpm Height: 73 in /185.4 cm BSA: 2.32 m^2 Weight: 237.5 lb /108 kg BMI: 31.4 kg/m^2 *Insurance Counselor: * eMlissa Schmitz [facility] *Referring Physician: * Malissa Wills *Reading Physician: * Romero Antonio MD Indications: Syncope. History: Coronary artery disease. Risk factors: Hypertension. Hyperlipidemia. Conclusions Summary: 1. Left ventricle: The cavity size is normal. There is mild concentric hypertrophy. Systolic function is normal. The estimated ejection fraction is 55-60%. Doppler parameters are consistent with abnormal left ventricular relaxation (grade 1 diastolic dysfunction). 2. Normal cardiac chamber sizes. 3. Functionally benign heart vlaves. 4. Ascending aorta: The ascending aorta is mildly dilated. 5. There is no prior echocardiogram available to compare with at this time. Study data: Transthoracic echocardiogram. Procedure: Transthoracic echocardiography was performed. Image quality was fair. Complete 2D, spectral Doppler, and color flow Doppler. Location: Bedside. Patient status: Inpatient. Patient room number: 438. Rhythm: Normal sinus rhythm with PVC's. Findings Left ventricle: The cavity size is normal. There is mild concentric hypertrophy. Systolic function is normal. The estimated ejection fraction is 55-60%. Wall motion is normal; there are no regional wall motion abnormalities. Doppler parameters are consistent with abnormal left ventricular relaxation (grade 1 diastolic dysfunction). Right ventricle: The cavity size is mildly to moderately dilated. Systolic function is normal. Left atrium: The atrium is normal in size. Right atrium: The atrium is normal in size. Mitral valve: The leaflets are mildly thickened. There is trace regurgitation. Aortic valve: The valve is trileaflet. The leaflets are mildly thickened. There is no evidence of stenosis. There is no significant regurgitation. Tricuspid valve: The leaflets are normal thickness. There is physiologic regurgitation. Pulmonic valve: The leaflets are normal thickness. There is no evidence of stenosis. There is no significant regurgitation. Aorta: Aortic root: The aortic root is upper normal in size. Ascending aorta: The ascending aorta is mildly dilated. Aortic arch: The aortic arch is not visualized. Pericardium: A prominent pericardial fat pad is present. There is no significant pericardial effusion. Pulmonary arteries: Not well visualized. Systemic veins: Inferior vena cava: The vessel is normal in size. The respirophasic diameter changes are in the normal range (>= 50%). Measurements Left ventricle Value Ref Right atrium Value Ref GROVER, LAX (L) 4.1 cm 4.2 - 5.8 SI dim, ES 5.0 cm 3.4 - 5.3 ESD, LAX 2.6 cm 2.5 - 4.0 ML dim, ES, A4C 4.4 cm 2.6 - 4.4 FS, LAX 37 % 25 - 43 SI dim, ES, A4C 5.0 cm 3.4 - 5.3 PW, ED, LAX (H) 1.1 cm 0.6 - 1.0 Estimated RAP 3 mm Hg --------- FS 37 % 25 - 43 PW, ED (H) 1.1 cm 0.6 - 1.0 Aortic valve Value Ref E', lat elder, TDI (L) 7.6 cm/sec >=10.0 Elder diam, ED 2.2 cm --- ------ E/e', lat elder, 5 Peak v, S 0.97 m/sec ------ --- TDI VTI, S 21.6 cm --------- E', med elder, TDI (L) 6.1 cm/sec >=7.0 Mean grad, S 2.0 mm Hg --- ------ E/e', med elder, 7 Peak grad, S 4.0 mm Hg ------ --- TDI LVOT/AV, VTI ratio 0.88 --------- E', avg, TDI 6.9 cm/sec BEBETO, VTI 2.76 cm^2 ------ --- E/e', avg, TDI 6 <=14 BEBETO, Vmax 3.12 cm^2 --- ------ LVOT Value Ref Mitral valve Value Ref Diam, S 2.00 cm Peak E 0.41 m/sec --------- Area 3.1 cm^2 Peak A 0.64 m/sec --------- Peak john, S 0.96 m/sec Decel time 415 ms --------- VTI, S 19.0 cm Peak E/A ratio 0.6 --------- Mean grad, S 1 mm Hg SV 61 ml Pulmonic valve Value Ref SV/bsa 26 ml/m^2 Peak v, S 0.72 m/sec --------- Peak grad, S 2.0 mm Hg --------- Ventricular septum Value Ref IVS, ED (H) 1.1 cm 0.6 - 1.0 Aortic root Value Ref Root diam 3.6 cm <4.4 Right ventricle Value Ref GROVER, LAX 3.7 cm Ascending aorta Value Ref GROVER minor ax, (H) 5.1 cm 1.9 - 3.5 AAo AP diam, S 3.7 cm --------- A4C mid Decending aorta Value Ref Left atrium Value Ref Dane peak john 0.43 m/sec --------- AP dim, ES 3.90 cm 3.00 - 4.00 Inferior vena cava Value Ref ML dim, A4C 4.7 cm Diam 1.7 cm --------- SI dim, A4C 4.7 cm Vol/bsa, ES, 1-p 33 ml/m^2 12 - 37 A4C Vol/bsa, ES, A/L 31 ml/m^2 16 - 34 Legend: (L) and (H) berenice values outside specified reference range. Prepared and electronically signed by Romero Antonio MD 04/15/2019 13:13
[2019-04-15] MEDS ORDERED: Atorvastatin* 10 MG TAB PO SCH (18:00)
[2019-04-15] MEDS ORDERED: Finasteride TAB* 5 MG PO SCH (18:00)
--- NOTE | 2019-04-15 18:48 | CONS ---
CONSULTATION NOTE: DATE OF CONSULT: 04/15/19 HISTORY OF PRESENT ILLNESS: The patient is a very pleasant 83-year-old gentleman who has history of thyroidectomy, bladder CA, coronary artery disease , spinal stenosis; status post lumbar surgery in December [address] Yoon, and recent increasing episodes of falls; last had a fall last Thursday. The patient was found in the emergency room to have a CT scan of the thoracic spine findings consistent with a T10 anterior compression fracture and was currently admitted by the hospitalist service for further evaluation. The patient reports that he tripped and he fell. He did not lose his consciousness. He denies any weakness, numbness or tingling of his extremities. He denies any neck pain, but he does have back pain. He reports that he has chronic headache and neck pain. He reports that he does not have any incontinence. He denies any urinary or GI incontinence. His perianal sensation is intact. The patient is retired. He used to work in the [employer] and as a branch sales manager in car sales. He is and he has 4 sons. PAST MEDICAL HISTORY: BPH, bladder CA, coronary artery disease, spinal stenosis , hyperlipidemia, hypothyroidism, osteoarthritis, B12 deficiency. PAST SURGICAL HISTORY: Thyroidectomy, bladder tumor resection, lumbar laminectomy with Dr. Yoon in 2016. MEDICATIONS: The patient was on: 1. Acetaminophen. 2. Vitamin D. 3. Fexofenadine. 4. Finasteride. 5. Ipratropium. 6. Levothyroxine. 7. Metoprolol. 8. Montelukast. 9. Naproxen. 10. Omeprazole. 11. Sertraline. 12. Simvastatin. 13. Sucralfate. ALLERGIES: IV CONTRAST, BIAXIN, OXYCODONE, and SEPTRA. FAMILY HISTORY: Mother with Alzheimer's. SOCIAL HISTORY: Tobacco: Negative, he is an ex-smoker. Alcohol: Occasionally. Recreational drug use: Negative. PHYSICAL EXAM: The patient is not in any acute distress. He is awake, alert, and oriented x3. His pupils are equal and reactive. Cranial nerves II through XII are grossly intact. Motor 4-5/5 in all extremities. The patient has no tenderness to palpation of the cervical, thoracic or lumbar spine. He has free range of motion of the cervical spine. DIAGNOSTIC STUDIES: The patient had a CT of the brain that did not reveal any acute abnormalities. CT of the cervical spine revealed degenerative disk disease without acute fractures. CT of the thoracic spine revealed an anterior compression fracture of T10. CT of the lumbar spine: The patient has a chronic deformity at L4, possibly sequela of old fracture. ASSESSMENT: The patient is a very pleasant 83-year-old gentleman with history of falls, with a recent diagnosis of T10 anterior compression fracture. PLAN: The patient at this point is doing quite well. He had this morning MRI of the thoracic spine that revealed the increased signal on STIR images at the T10 vertebral body, a similar distribution with the fracture line seen on the CT scan. There is no evidence of posterior ligament complex injury. The patient at this point most likely will be treated conservatively with TLSO. We will be happy to obtain upright x-rays of his thoracic spine to confirm that the patient can tolerate upright posture with a brace. Discussed with the patient and his regarding conservative treatment versus operative approach , especially if he develops significant kyphosis and we discussed the risks and benefits of both approaches. The patient and his would prefer to attempt conservative treatment first, understanding the risks associated with either treatment. We will be happy to review the upright x-ray of his thoracic spine after the patient will be fitted for a TLSO brace. Thank you for allowing us to participate in the care of this patient. Please do not hesitate to contact our office in case you have any further questions or concerns regarding the care of this patient. [id number]/CPS #: [id number] RUPA
[2019-04-15] MEDS: Heparin VIAL(*) 5000 UNITS/ML VIAL (FIVE THOUSAND) SUBCUT SCH (20:55)
[2019-04-16] MEDS: Levothyroxine TAB* 25 MCG TAB PO SCH (05:20)
[2019-04-16] MEDS: Heparin VIAL(*) 5000 UNITS/ML VIAL (FIVE THOUSAND) SUBCUT SCH ×2 (05:20→13:46)
[2019-04-16] MEDS: Cholecalciferol TAB* 1000 UNITS PO SCH (08:29)
[2019-04-16] MEDS: Sertraline* 50 MG TAB PO SCH (08:29)
[2019-04-16] MEDS: Pantoprazole TAB * 40 MG TAB PO SCH (08:29)
--- NOTE | 2019-04-16 12:30 | PN ---
Progress Note - Progress Note Date of Service: 04/16/19 Note: Patient was upset this morning, because he was not able to TLSO brace yesterday and will possible remain in the hospital over the weekend. He has been able to tolerate sitting up and walking to the bathroom. Neurosurgery recommend that he remains on bed rest until he is fitted for TLSO brace. Once patient is fitted we need standing upright X rays AP lateral views in brace.
[2019-04-16] MEDS: Sucralfate TAB* 1 GM PO SCH (13:46)
[2019-04-16 16:22] VITALS: BP 141/71
--- NOTE | 2019-04-16 20:49 | DS ---
AMENDED REPORT NOW INCLUDES DESIGNATED COSIGNER CC: Dr. Daniel Pinto; Dr. Tommy Orta * DISCHARGE SUMMARY: DATE OF ADMISSION: 04/15/19 DATE OF DISCHARGE: 04/16/19 PRIMARY CARE PROVIDER: Dr. Daniel Pinto. ATTENDING PHYSICIAN: Dr. Wedny Franco * (dictated by Noris Liao NP). PRIMARY DIAGNOSES: 1. T10 compression fracture. 2. Orthostatic hypotension. SECONDARY DIAGNOSES: 1. Benign prostatic hypertrophy. 2. Coronary artery disease. 3. Hyperlipidemia. 4. Vitamin B12 deficiency. 5. Chronic kidney disease, stage 3. STUDIES WHILE IN THE HOSPITAL: 1. EKG on 04/14/19 shows normal sinus rhythm with a rate of 62, QTc 417. No ischemic changes. 2. Brain CT on 04/14/19 reads as no intracranial mass or hemorrhages noted. 3. Cervical spine CT on 04/14/19 reads as degenerative disk disease and bony changes with varying degrees of foraminal stenosis. No spinal stenosis. No acute fracture or subluxation. Mild prominence of the left thyroid with slight substernal extension. 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 4. Chest CT on 04/14/19 reads as segmental ankylosis of the thoracic spine. Nondisplaced oblique fracture of the T10 segment extending from the anterior aspect on the inferior endplate of T10 and into the T10 and T11 disk space. No posterior extension was seen. Absent right thyroid lobe with mild lobular prominence of the left and slight substernal extension. Mild aneurysmal dilation of the ascending thoracic aorta measuring 42 mm. Mild prominence of the main pulmonary artery measuring 41 mm, which may be seen with pulmonary hypertension. Probable mild cholelithiasis with minimal faint gallstones. Otherwise, negative CT chest. 5. Lumbar spine CT on 04/14/19 reads as mild chronic deformity of the L4 segment suggesting old fracture. Colonic diverticulosis. Multilevel degenerative disk and facet changes with a mild spinal stenosis at L3-4 and borderline spinal stenosis at L4-5. There is borderline neural foraminal stenosis at L3-L4. Otherwise, negative CT lumbar spine. No acute fracture or subluxation. 6. Thoracic spine CT on 04/14/19 reads as segmental ankylosis through portions of the thoracic spine. Oblique fracture through the T10 segment extending from the anterior aspect into the inferior endplate of T10 and into the T10-T11 disk pace. No fracture is identified posteriorly. There is slight paravertebral induration without significant paraspinal hematoma. Degenerative spurring throughout much of the thoracic spine with no spinal or foraminal stenosis. No additional fractures are identified and there is no abnormal subluxation. 7. Thoracic spine MRI on 04/15/19 reads as nondisplaced fracture of the anterior column T10. No findings to suggest ligamentous disruption. Degenerative disk disease and osteoarthritis. No significant neural foraminal narrowing or central canal stenosis. 8. Transthoracic echocardiogram on 04/15/19 reads as the left ventricular cavity size is normal. There is mild concentric left ventricular hypertrophy. Systolic function is normal. The estimated ejection fraction is 55% to 60%. Doppler parameters are consistent with abnormal left ventricular relaxation, grade 1 diastolic dysfunction. Normal cardiac chamber sizes. Functionally benign heart valves. The ascending aorta is mildly dilated. There is no prior echocardiogram to compare at this time. 9. Thoracolumbar spine x-ray on 04/16/19 reads as negative for loss of height at the T10 vertebral body, which demonstrates a subtle fracture on MRI of 1 day prior. Negative for spondylolisthesis at any level. 10. Thoracic spine x-ray on 04/16/19 diffuse thoracic degenerative spondylosis with mildly increased thoracic kyphosis. Negative for subluxation at any level. The T10 vertebral body fracture documented on MRI is radiographically occult. Unremarkable paraspinal soft tissue contours. HISTORY OF PRESENT ILLNESS AND HOSPITAL COURSE: Mr. Morse is an 83-year-old male with past medical history of BPH, coronary artery disease, hyperlipidemia and chronic back pain, who presented to the emergency room on 04/14/19 with complaints of back pain. Please see the history and physical by Dr. Elias for a complete summary of the events leading up to this hospitalization. In short, the patient had increasing falls recently and fell 4 days prior to admission. He noted lower back pain since that time and so presented to the emergency room. In the emergency room, he had imaging as noted above, remarkable for a T10 compression fracture. He had lab work, which was unremarkable and vital signs were stable. The patient was admitted by the hospitalist service. The patient was seen in consultation by Dr. Orta from Neurosurgery on 09/22. At that time, he suggested treating the T10 fracture conservatively with a TLSO brace. He did recommend obtaining upright x-rays of the thoracic spine once the brace was in place. The patient had an uneventful night and pain was well managed with [place] and acetaminophen. As of this morning, the patient reports feeling well. He denies any pain at rest. He has been up ambulating to the bathroom, but otherwise has been on bedrest. Maya was able to come and fit the patient for a brace today and at this time, he does have a TLSO brace in place. The patient did have upright x-rays as recommended by Dr. Orta and I did speak with Dr. Orta, who has reviewed these x- rays and have advised that the patient is stable for discharge from his perspective with appropriate followup imaging and followup in his office. On exam, the patient has no focal neurological deficits. His heart has a regular rate and rhythm without murmurs, rubs, or gallops. Lungs are clear to auscultation without rhonchi, wheezes, or rales. There is no edema. Physical assessment is otherwise benign. Mr. Morse is stable for discharge today. Vital signs are as follows: Temp 97.4 , heart rate 78, respiratory rate 16, oxygen saturation 97% on room air, blood pressure 141/71. DISCHARGE MEDICATIONS: New medication: 1. Tramadol 25 mg p.o. q.6 hours p.r.n. pain. Continued medications: 1. Cholecalciferol 1000 units p.o. daily. 2. Levothyroxine 25 mcg p.o. daily. 3. Omeprazole 40 mg p.o. b.i.d. 4. Sertraline 150 mg p.o. daily. 5. Simvastatin 20 mg p.o. daily. 6. Sucralfate 1 g p.o. b.i.d. 7. Acetaminophen 1000 mg p.o. daily p.r.n. pain. 8. Fexofenadine 180 mg p.o. daily. 9. Finasteride 5 mg p.o. daily. 10. Ipratropium 0.03% two sprays both nares t.i.d. 11. Metoprolol succinate 25 mg p.o. daily. 12. Singulair 10 mg p.o. daily. 13. Naproxen 500 mg p.o. b.i.d. Discontinued medication: 1. Finasteride. DISCHARGE PLAN: Mr. Morse will be discharged home. Activity will be as tolerated, though the patient should avoid any strenuous or high level of activity until further directed by Dr. Orta. He should wear his brace at all times when he is out of bed and I have advised him and his that if he has any further questions about activity restrictions, he should contact Dr. Orta' office. Diet will be regular as tolerated. Medications are noted above. I have sent in a small supply of tramadol for pain management and have advised the patient that he can continue to take acetaminophen for pain. He can continue his other usual medications with the exception of finasteride, which I have discontinued at this time as this can contribute to orthostatic hypotension. He will need to follow up with Dr. Orta in approximately 2 weeks and should have followup upright x-rays of the thoracic spine. I have placed an order for these x-rays so that the patient can have this done prior to his office visit. This was discussed with Dr. Orta. He will also need to follow up with his primary care provider in the next 4 to 7 days. I have advised the patient that he should remain hydrated and use caution when standing from a lying or sitting position to avoid any further orthostatic hypotension. I have advised the patient that he should return to the emergency room or nearest hospital for any worsening of symptoms, shortness of breath, lightheadedness, dizziness, chest discomfort, high fevers, chills, night sweats , loss of consciousness, or any other worrisome signs or symptoms. DISCHARGE CONDITION: Stable. DISCHARGE DISPOSITION: Home. This is a summarized report of a complex medical history and hospital stay. For further details, please see the entire medical record. TIME SPENT: Approximately 50 minutes was spent on this discharge. NORIS LIAO NP [id number]/[facility] #: [id number] RUPA
[2019-04-17] MEDS ORDERED: Cyanocobalamin INJ * 1,000 MCG/ML VIAL 1 ML VIAL IM SCH (07:00)
== END 2019-04-16 18:30 | disposition home or self-care (01) | DRG 552 ==
LOC: ED 15:06 → MEDTELE 04-15 00:34 → OBSVTOIN 04-15 12:18
PROVIDERS: ADMIT Internal Medicine; ATTEND Internal Medicine
DX: S22.079A Unspecified fracture of T9-T10 vertebra, initial encounter for closed fracture (principal); W17.89XA Other fall from one level to another, initial encounter; I10 Essential (primary) hypertension; K21.9 Gastro-esophageal reflux disease without esophagitis; K57.90 Diverticulosis of intestine, part unspecified, without perforation or abscess without bleeding; M15.9 Polyosteoarthritis, unspecified; N40.0 Benign prostatic hyperplasia without lower urinary tract symptoms; M48.00 Spinal stenosis, site unspecified; G62.9 Polyneuropathy, unspecified; F41.9 Anxiety disorder, unspecified; F32.9 Major depressive disorder, single episode, unspecified; I25.10 Atherosclerotic heart disease of native coronary artery without angina pectoris; E78.5 Hyperlipidemia, unspecified; G89.29 Other chronic pain; M54.9 Dorsalgia, unspecified; I95.1 Orthostatic hypotension; E53.8 Deficiency of other specified B group vitamins; E89.0 Postprocedural hypothyroidism; Z87.891 Personal history of nicotine dependence; Y92.008 Other place in unspecified non-institutional (private) residence as the place of occurrence of the external cause; Z88.0 Allergy status to penicillin; Z88.1 Allergy status to other antibiotic agents; Z88.6 Allergy status to analgesic agent; Z88.2 Allergy status to sulfonamides; Z88.8 Allergy status to other drugs, medicaments and biological substances; Z91.041 Radiographic dye allergy status
CPT/HCPCS: 36415; 70450; 71250; 72070; 72080; 72125; 72128; 72131; 72146; 80053; 81003; 81015; 82607; 83605; 83735; 84443; 84484; 85025; 87077; 87086; 87186; 93005; 93306; 99285; A9270-GY; G8978-GP-CI; G8979-GP-CI; G8980-GP-CH; J1644; J3420

== ENCOUNTER → 2019-10-06 11:49 | Emergency (ER) | payer MEDICARE, OTHER ==
[~2019-10-06 11:49] MED LIST changes: -Buffered Lidocaine 1% SYRIN* 1 ML/SYRINGE INTRADERM ONE; +Lidocaine Patch REMOVE* 1 NOTE MISC SCH
--- OUTSIDE RECORDS SUMMARY | 2019-10-06 12:25 | XMS REPORT | Continuity of Care Document ---
:1935 External Reference #:[id number] Author Name Jose Barajas M.D. (transmitted by agent of provider Jonna Underwood) Address [address] [place] [address] Care Team Providers Name Role Phone Daniel Pinto MD - Family Care Team Information [employer] Librarian [phone] Medicine Problems Active Problems Provider Date Synovitis and tenosynovitis Arie Ernst M.D. Onset: 12/11/2010 Low back pain Trang Rubio M.D. Onset: 10/24/2016 Localized, primary osteoarthritis of the Trang Rubio M.D. Onset: 10/24/2016 pelvic region and thigh Spinal stenosis of lumbar region Woody Yoon M.D. Onset: 11/03/2016 Late effects of cerebrovascular disease Woody Yoon M.D. Onset: 12/08/2016 Convalescence after surgery Woody Yoon M.D. Onset: 01/14/2017 Mixed hyperlipidemia Melanie Jones M.D. Onset: 12/21/2017 Coronary artery atheroma Melanie Jones M.D. Onset: 12/21/2017 Aneurysm of thoracic aorta Melanie Jones M.D. Onset: 09/20/2018 Abnormal gait Jose Barajas M.D. Onset: 02/01/2019 Dizziness and giddiness Jose Barajas M.D. Onset: 02/01/2019 Chronic fatigue syndrome Jose Barajas M.D. Onset: 02/01/2019 Polyneuropathy Jose Barajas M.D. Onset: 08/30/2019 Social History Type Date Description Comments Sex Unknown Tobacco Use Start: Unknown Never Smoked Cigars Tobacco Use Start: Unknown Never Smoked A Pipe Smokeless Tobacco Never Used Smokeless Tobacco ETOH Use Rarely consumes alcohol Tobacco Use Start: Unknown End: Patient is a former smoked for 32 years Unknown smoker and quit in 1984 Recreational Drug Use Denies Drug Use Smoking Status Reviewed: 08/30/19 Patient is a former smoked for 32 years smoker and quit in 1984 Exercise Type/Frequency Exercises sporadically Allergies, Adverse Reactions, Alerts Active Allergies Reaction Severity Comments Date Penicillin rash 12/16/2011 contrast dye 12/16/2011 Septra 10/24/2016 Oxycodone 10/24/2016 Biaxin 10/24/2016 Percocet 12/21/2017 Medications Active Medications SIG Qnty Indications Ordering Date Provider Toprol XL 1 by mouth every 90tabs Melanie Stevensoner, 01/06/2018 25mg Tablets day M.D. ER 24HR Omeprazole 1 by mouth bid Daniel Pinto 10/30/[address] Sertraline HCL 3 by mouth every [facility], 09/24/2017 50mg day Morning 7:00 Am JOEL Parker Tablets Sucralfate 1 by mouth three a Daniel Pinto 06/29/2017 1gm Tablets day 1 hr before or AMD Kinjal 3 hrs after eating Montelukast Sodium 1 by mouth every Daniel Pinto 04/16/2017 10mg day AMD Kinjal Tablets Simvastatin 1 by mouth every Daniel Pinto 04/01/2017 20mg day PM AMD Kinjal Tablets Fexofenadine HCL 1 by mouth every Unknown 180mg day Tablets Acetaminophen 1-2 tabs 3x a day Daniel Pinto 500mg as needed for A.MD Tablets headaches Icy Hot Extra as needed Unknown Strength 10-30% Cream Levothyroxine Sodium 1 [facility] mins A.MD 25mcg Tablets prior to other morning pills Atrovent HFA 2 inhalations four Unknown 17mcg/Act times a day Aerosol Finasteride 1 by mouth every Unknown 5mg Tablets day Gabapentin 3 tabs daily Unknown 100mg Capsules Vitamin Deficiency inject 1 Unknown Injectable System-B12 milliliters every week for 4 weeks 1000mcg/ML Kit followed by monthly injections. Medications Administered in Office Medication SIG Qnty Indications Ordering Provider Date Technetium TC 99M Ica Nuclear Schedule 01/27/2018 Tetrofosmin, Per Unit Dose Up To 40 Millicuries Injection Technetium TC 99M Romero Rainer Antonio M.D., 01/26/2018 Tetrofosmin, Per Unit Dose FACC, FASNC Up To 40 Millicuries Injection Inj, Regadenoson, 0.1 MG Ghassan Mireles M.D. 01/02/2015 Injection Inj, Regadenoson, 0.1 MG Melanie Jones M.D. 01/02/2015 Injection Technetium TC 99M Ghassan Mireles M.D. 01/02/2015 Tetrofosmin, Per Unit Dose Up To 40 Millicuries Injection Technetium TC 99M Melanie Jones M.D. 01/02/2015 Tetrofosmin, Per Unit Dose Up To 40 Millicuries Injection Depomedrol 80MG Arie Ernst M.D. 08/17/2013 Injection Depomedrol 40MG Arie Ernst M.D. 03/17/2012 Injection Depomedrol 40MG Bernard Rios, 2011 Injection ALETHA-Angelina Depomedrol 40MG Arie Ernst M.D. 2011 Injection Depomedrol 40MG Arie Ernst M.D. 2011 Injection Depomedrol 80MG Arie Ernst M.D. 05/28/2011 Injection Depomedrol 80MG YURY Saenz 05/15/2011 Injection Depomedrol 80MG Arie Ernst M.D. 06/12/2010 Injection Depomedrol 40MG Elizabeth Lynn PA 02/27/2010 Injection Depomedrol 40MG Arie Ernst M.D. 01/02/2010 Injection Depomedrol 40MG Arie Ernst M.D. 07/18/2009 Injection Immunizations Description No Information Available Vital Signs Date Vital Result Comment 08/30/2019 8:26am Height 73 inches 6'1" Weight 240.00 lb Heart Rate 79 /min BP Systolic 104 mmHg BP Diastolic 60 mmHg BMI (Body Mass Index) 31.7 kg/m2 06/01/2019 4:19pm Height 73 inches 6'1" Weight 240.00 lb BP Systolic 124 mmHg BP Diastolic 76 mmHg Pain Level 10 BMI (Body Mass Index) 31.7 kg/m2 Results Description No Information Available Procedures Date Code Description Status 04/15/2019 80272 ECHO Transthorasic Realtime 2D W Doppler & Color Flow Hosp Completed Medical Devices Description No Information Available Encounters Type Date Location Provider Dx Diagnosis Office Visit 08/30/2019 [facility] Jose Barajas, R26.81 Unsteadiness on 8:15a [facility] MNorah feet R42 Dizziness and giddiness G62.9 Polyneuropathy, unspecified M54.2 Cervicalgia Office Visit 07/15/2019 [facility] S22.079D Unsp fracture 8:30a [facility] Orta MD of T9-T10 vertebra, subs for fx w routn heal M54.2 Cervicalgia M54.12 Radiculopathy, cervical region Office 06/01/2019 [facility] S22.079D Unsp fracture of Visit 4:00p [facility] Orta MD T9-T10 vertebra, subs for fx w routn heal Office 05/09/2019 [facility] Karthik Robledo, R26.81 Unsteadiness on Visit 10:30a [facility] N.PKinjal feet R42 Dizziness and giddiness G62.9 Polyneuropathy, unspecified S22.079A Unsp fracture of T9-T10 vertebra, init for clos fx Office Visit 04/27/2019 [facility] S22.079D Unsp fracture 8:30a [facility] Orta MD of T9-T10 vertebra, subs for fx w routn heal Office Visit 04/16/2019 [facility] S22.079D Unsp fracture 7:00a [facility] Orta MD of T9-T10 vertebra, subs for fx w routn heal Office Visit 04/16/2019 [facility] Noris Liao, DIVER ASSISTANT S22.079A Unsp fracture 10:18a Assoc,pc of T9-T10 Hospitalists vertebra, init for clos fx I95.1 Orthostatic hypotension N40.0 Benign prostatic hyperplasia without lower urinry tract symp I25.10 [facility] heart disease [facility] [place] coronary artery w/o ang pctrs E78.5 Hyperlipidemia, unspecified D51.9 Vitamin B12 deficiency anemia, unspecified N18.3 Chronic kidney disease, stage 3 (moderate) Office Visit 04/15/2019 [facility] S22.079A Unsp fracture 7:00a [facility] Orta MD of T9-T10 vertebra, init for clos fx Office Visit 04/15/2019 [facility] Gray D. S22.009D Unsp fx unsp 10:17a Assoc,ambar Elias M.D.,FACP thor vertebra, Hospitalists subs for fx w routn heal E03.9 Hypothyroidism, unspecified R82.90 Unspecified abnormal findings in urine R29.6 Repeated falls Assessments Date Code Description Provider 08/30/2019 R26.81 Unsteadiness on feet Jose Barajas M.D. 08/30/2019 R42 Dizziness and giddiness Jose Barajas M.D. 08/30/2019 G62.9 Polyneuropathy, unspecified Jose Barajas M.D. 08/30/2019 M54.2 Cervicalgia Jose Barajas M.D. 07/15/2019 S22.079D Unspecified fracture of T9-T10 Tommy Orta MD vertebra, subsequent encounter for fracture with routine healing 07/15/2019 M54.2 Cervicalgia Tommy Orta MD 07/15/2019 M54.12 Radiculopathy, cervical region Tommy Orta MD 06/01/2019 S22.079D Unspecified fracture of T9-T10 Tommy Orta MD vertebra, subsequent encounter for fracture with routine healing 05/09/2019 R26.81 Unsteadiness on feet Karthik Robledo, N.P. 05/09/2019 R42 Dizziness and giddiness Karthik Robledo, N.P. 05/09/2019 G62.9 Polyneuropathy, unspecified Karthik Robledo, N.P. 05/09/2019 S22.079A Unspecified fracture of T9-T10 Karthik Robledo, N.P. vertebra, initial encounter for closed fracture 04/27/2019 S22.079D Unspecified fracture of T9-T10 Tommy Orta MD vertebra, subsequent encounter for fracture with routine healing 04/16/2019 S22.079D Unspecified fracture of T9-T10 Tommy Orta MD vertebra, subsequent encounter for fracture with routine healing 04/16/2019 S22.079A Unsp fracture of T9-T10 vertebra, Noris Yanni, DIVER ASSISTANT init for clos fx 04/16/2019 I95.1 Orthostatic hypotension Noris Yanni, DIVER ASSISTANT 04/16/2019 N40.0 Benign prostatic hyperplasia Noris Yanni, DIVER ASSISTANT without lower urinry tract symp 04/16/2019 I25.10 Athscl heart disease of [place] Noris Yanni, DIVER ASSISTANT coronary artery w/o ang pctrs 04/16/2019 E78.5 Hyperlipidemia, unspecified Noris Yanni, DIVER ASSISTANT 04/16/2019 D51.9 Vitamin B12 deficiency anemia, Noris Yanni, DIVER ASSISTANT unspecified 04/16/2019 N18.3 Chronic kidney disease, stage 3 Noris Yanni, DIVER ASSISTANT (moderate) 04/15/2019 S22.079A Unspecified fracture of T9-T10 Tommy Orta MD vertebra, initial encounter for closed fracture 04/15/2019 R55 Syncope and collapse Romero Antonio M.D., [facility] 04/15/2019 S22.009D Unspecified fracture of Gray Elias M.D.,[facility] unspecified thoracic vertebra, subse 04/15/2019 E03.9 Hypothyroidism, unspecified [facility] M.D.,[facility] 04/15/2019 R82.90 Unspecified abnormal findings in Gray Elias M.D., FACP urine 04/15/2019 R29.6 Repeated falls Gray Elias M.D.,[facility] Plan of Treatment Future Appointment(s):12/15/2019 10:15 am - Jose Barajas M.D. at [facility]11/16/2019 9:30 am - Tommy Orta MD at [facility]08/30/2019 - Jose Barajas M.D.R26.81 Unsteadiness on feetFollow up:Follow up in 3 [id number] Dizziness and thbqcdbezU76.9 Polyneuropathy, rvdjcjynnjmI91.2 Cervicalgia Functional Status Description No Information Available Mental Status Description No Information Available Referrals Description No Information Available
--- NOTE | 2019-10-06 13:53 | ED ---
Back Pain - HPI Summary HPI Summary: Patient is a 84 y/o M presenting to [facility] with complaints of worsened lower back pain, difficulty with getting out of bed and ambulation. Patient had a fall occur in 2016, it is reported that the patient had compression of his spinal cord. Dr. Yoon performed surgery to "shave some bones". In April 2019, patient had another fall. He came to ED, x-ray done showed T-10 fracture. Dr. Barlow evaluated the patient, he was treated conservatively for this fracture with a back brace. On 09/29/19, patient had onset of worsened lower back pain and difficulty with getting out of bed and ambulation. Sx are reported to have been constant since onset. Pain is at his lower back waist area and radiates around to his hips. There is some slight radiation of pain down BLE, patient denies Hx of sciatica. CP and SOB are denied by the patient, but notes that he has been breathing heavily with exertion. No fall or discrete injuries noted. Patient also makes note of neck pain, right shoulder pain that radiates down his arm, but these Sx are characterized as chronic and unchanged. He is taking gabapentin. Patient is in room wearing his brace, states that he wanted to wear it to see if it alleviated Sx, but it did not. Home medications and allergies are reviewed. - History of Current Complaint Chief Complaint: EDBackInjuryPain Stated Complaint: WEAK, Time Seen by Provider: 10/06/19 13:45 Hx Obtained From: Patient Onset/Duration: Lasting Days, Still Present Onset/Duration: Started Days Ago, Still Present Timing: Constant, Lasting Days Back Pain Location: Is Discrete @ - lower back, Radiates To - hips, somewhat down BLE Severity Currently: Severe Pain Intensity: 9 Pain Scale Used: 0-10 Numeric Associated Signs And Symptoms: Positive: Other - negative - CP, SOB; positive - breathing hard with exertion - Allergies/Home Medications Allergies/Adverse Reactions: Allergies Allergy/AdvReac Type Severity Reaction Status Date / Time clarithromycin [From Biaxin] Allergy Unknown Verified 02/23/19 10:19 Reaction Details Iodinated Contrast Media Allergy Hives Verified 04/15/19 11:34 [Iodinated Contrast- Oral and IV Dye] oxycodone [From Percocet] Allergy Unknown Verified 02/23/19 10:19 Reaction Details Penicillins Allergy NASUEA AND Verified 02/23/19 10:19 VOMITING sulfamethoxazole Allergy Unknown Verified 02/23/19 10:19 [From ] Reaction Details trimethoprim [From ] Allergy Unknown Verified 02/23/19 10:19 Reaction Details Home Medications: Home Medications Finasteride TAB* [Proscar TAB*] 5 mg PO BEDTIME 10/06/19 [History Confirmed 11/24] Gabapentin CAP(*) [Neurontin 100 mg CAP(*)] 100 mg PO BID 10/06/19 [History Confirmed 10/06/19] Sucralfate SUSP (NF) [Carafate SUSP (NF)] 1 gm PO TID 10/06/19 [History Confirmed 10/06/19] PMH/Surg Hx/FS Hx/Imm Hx Endocrine/Hematology History: Reports: Hx Thyroid Disease - REMOVAL OF PORTION OF THYROID Denies: Hx Diabetes Cardiovascular History: Reports: Hx Hypertension - ON MEDICATION FOR, Other Cardiovascular Problems/Disorders - CARDIAC WORKUP WITH DR. LAKE- spring-AORTIC ANEURSYM REPAIR Denies: Hx Pacemaker/ICD Respiratory History: Denies: Hx Asthma, Other Respiratory Problems/Disorders GI History: Reports: Hx Gastroesophageal Reflux Disease - ON MEDICATION FOR, Hx Hiatal Hernia - HX OF IN THE PAST, Hx Ulcer - HX OF IN THE PAST, Other GI Disorders - DIVERTICULOSIS History: Reports: Other Problems/Disorders - enlarged prostate Denies: Hx Renal Disease Musculoskeletal History: Reports: Hx Arthritis - "ALL OVER", Hx Bursitis - HX OF IN THE PAST, Hx Tendonitis - HX OF IN THE PAST, Other Musculoskeletal History - spinal stenosis Sensory History: Reports: Hx Cataracts - ?, Hx Contacts or Glasses - GLASSES Denies: Hx Hearing Aid Opthamlomology History: Reports: Hx Cataracts - ?, Hx Contacts or Glasses - GLASSES Neurological History: Reports: Hx Headaches - PRN MEDICATION FOR, Hx Nerve Disease - PERIPHERAL NEUROPATHY, Other Neuro Impairments/Disorders - had fall in aug 2016-memory loss, confusion- SLIGHT AT THIS TIME Psychiatric History: Reports: Hx Anxiety - ON MEDICATION FOR, Hx Depression - ON MEDICATION FOR Denies: Hx Panic Disorder - Surgical History Surgery Procedure, Year, and Place: THYROIDECTOMY ON LEFT. HERNIA REPAIR ( [place] AND LEFT SIDE ABDOMEN). ABDOMINAL AORTIC ANEURYSM 02/1997 (PRIOR MRIs NO IMPLANTS NOTED). PROSTATE SURGERY 2010 (X2). LEFT KNEE. BLADDER SURGERY FOR GROWTHS 2008. LUMBAR SURGERY 2017. BILATERAL CATARACTS; Hx Anesthesia Reactions: No - Immunization History Date of Influenza Vaccine: 2019 Immunizations Up to Date: Yes Infectious Disease History: No Infectious Disease History: Denies: Traveled Outside the [place] in Last 30 Days - Family History Known Family History: Negative: Renal Disease - Social History Alcohol Use: Rare Hx Substance Use: No Substance Use Type: Reports: None Hx Tobacco Use: Yes Smoking Status (MU): Former Smoker Amount Used/How Often: 1 PPD X 30 YEARS Have You Smoked in the Last Year: No Review of Systems Negative: Chest Pain Respiratory: Other - positive - breathing hard with exertion Negative: Shortness Of Breath Musculoskeletal: Other - positive - worsened lower back pain, difficulty with getting out of bed and ambulating (of neck pain, right shoulder pain that radiates down his arm that is chronic); negative - No fall or discrete injuries noted All Other Systems Reviewed And Are Negative: Yes Physical Exam - Summary Physical Exam Summary: Constitutional: Well-developed, Well-nourished, Alert. (-) Distressed Skin: Warm, Dry HENT: Normocephalic; Atraumatic Eyes: Conjunctiva normal Neck: Musculoskeletal ROM normal neck. (-) JVD, (-) Stridor, (-) Tracheal deviation Cardio: Rhythm regular, rate normal, Heart sounds normal; Intact distal pulses; The pedal pulses are 2+ and symmetric. Radial pulses are 2+ and symmetric. (-) Murmur Pulmonary/Chest wall: Effort normal. (-) Respiratory distress, (-) Wheezes, (-) Rales Abd: There is a large ventral hernia, but otherwise, soft, (-) tenderness, (-) Distension, (-) Guarding, (-) Rebound Musculoskeletal: Mild tenderness over lumbar spine, old surgical scar noted, able to bear weight; (-) Edema Lymph: (-) Cervical adenopathy Neuro: Alert, Oriented x3; no neurological deficits noted. Psych: Mood and affect Normal Triage Information Reviewed: Yes Vital Signs On Initial Exam: Initial Vitals Temp Pulse Resp BP Pulse Ox 97.8 F 74 18 140/100 96 10/06/19 11:51 10/06/19 11:51 10/06/19 11:51 10/06/19 11:51 10/06/19 11:51 Vital Signs Reviewed: Yes Procedures - Sedation Patient Received Moderate/Deep Sedation with Procedure: No Diagnostics - Vital Signs Vital Signs Temp Pulse Resp BP Pulse Ox 10/06/19 11:51 97.8 F 74 18 140/100 96 - Laboratory Lab Statement: Any lab studies that have been ordered have been reviewed, and results considered in the medical decision making process. - Radiology LUMBAR SPINE X-RAY Radiology Interpretation Completed By: Radiologist Summary of Radiographic Findings: IMPRESSION: 1. Osteopenia with unchanged L4 compression deformity. 2. Advanced multilevel spondylosis as above. 3. 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 THIS REPORT WAS REVIEWED BY ED PHYSICIAN. Back Pain Course/Dx - Course Course Of Treatment: Patient is a 84 y/o M presenting to [facility] with complaints of worsened lower back pain, difficulty with getting out of bed and ambulation. Patient had a fall occur in 2016, it is reported that the patient had compression of his spinal cord. Dr. Yoon performed surgery to "shave some bones". In April 2019, patient had another fall. He came to ED, x-ray done showed T-10 fracture. Dr. Barlow evaluated the patient, he was treated conservatively for this fracture with a back brace. On 09/29/19, patient had onset of worsened lower back pain and difficulty with getting out of bed and ambulation. Sx are reported to have been constant since onset. Pain is at his lower back waist area and radiates around to his hips. There is some slight radiation of pain down BLE, patient denies Hx of sciatica. CP and SOB are denied by the patient, but notes that he has been breathing heavily with exertion. No fall or discrete injuries noted. Patient also makes note of neck pain, right shoulder pain that radiates down his arm, but these Sx are characterized as chronic and unchanged. He is taking gabapentin. Patient is in room wearing his brace, states that he wanted to wear it to see if it alleviated Sx, but it did not. On physical exam, there is mild tenderness over lumbar spine, old surgical scar noted, able to bear weight. No neurological deficits noted. During ED course, patient received Lidoderm patch and Tylenol 650 mg PO. LUMBAR SPINE X-RAY IMPRESSION: 1. Osteopenia with unchanged L4 compression deformity. 2. Advanced multilevel spondylosis as above. 3. 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 X-ray discussed with the patient. He was discharged to home with PCP follow up and prescription for lidoderm patch. - Diagnoses Provider Diagnoses: Lower back pain, Spinal compression fracture Discharge ED - Sign-Out/Discharge Documenting (check all that apply): Patient Departure - discharge - Discharge Plan Condition: Stable Disposition: HOME Prescriptions: Lidocaine PATCH 5%* [Lidoderm 5% Patch*] 1 patch TRANSDERM DAILY #14 patch Patient Education Materials: Vertebral Compression Fracture (ED), Back Pain (ED ) Referrals: Daniel Pinto MD [Primary Care Provider] - 3 Days Additional Instructions: PLEASE RETURN TO ED FOR ANY NEW OR WORSENING SYMPTOMS. PLEASE FOLLOW UP WITH YOUR PRIMARY CARE PHYSICIAN IN THREE DAYS. - Billing Disposition and Condition Condition: STABLE Disposition: Home - Attestation Statements Document Initiated by Isai: Yes Documenting Scribe: MICHAEL CALZADA Provider For Whom Katrinae is Documenting (Include Credential): MOISES RUIZ DO Scribe Attestation: MICHAEL Tafoya scribed for MOISES RUIZ DO on 10/06/19 at 1820. Scribe Documentation Reviewed: Yes Provider Attestation: The documentation as recorded by the MICHAEL alonso accurately reflects the service I personally performed and the decisions made by , MOISES RUIZ DO Status of Scribe Document: Viewed
[2019-10-06] MEDS: Lidocaine PATCH 5%* 1 PATCH TRANSDERM ONE (14:14)
[2019-10-06] MEDS: Acetaminophen TAB* 325 MG PO ONE (14:14)
[2019-10-06 16:50] VITALS: BP 141/94
== END | disposition home or self-care (01) ==
LOC: ED 11:49
DX: M54.5 Low back pain (principal); S32.049S Unspecified fracture of fourth lumbar vertebra, sequela; W19.XXXS Unspecified fall, sequela; M85.88 Other specified disorders of bone density and structure, other site; E03.9 Hypothyroidism, unspecified; I10 Essential (primary) hypertension; K21.9 Gastro-esophageal reflux disease without esophagitis; F41.9 Anxiety disorder, unspecified; F32.9 Major depressive disorder, single episode, unspecified; Z87.891 Personal history of nicotine dependence; Z79.899 Other long term (current) drug therapy; Z88.5 Allergy status to narcotic agent; Z88.0 Allergy status to penicillin; Z88.2 Allergy status to sulfonamides; Z88.8 Allergy status to other drugs, medicaments and biological substances; Z88.1 Allergy status to other antibiotic agents; Z91.041 Radiographic dye allergy status
CPT/HCPCS: 72100; 99283; A9270-GY

== ENCOUNTER 2021-09-15 10:18 | Inpatient (IN) ==
[2021-09-15] MEDS ORDERED: NS 0.9% 1000 ml BAG 1,000 ML IV ONE (10:28)
[2021-09-15 10:55] LABS: ABS Eosinophils 0.1 10^3/ul (0-0.6); ABS Lymphocytes 0.7 10^3/ul (1.0-4.8); ABS Monocytes 0.5 10^3/ul (0-0.8); Eosinophil % 0.9 %; Hematocrit 43 % (42-52); Hemoglobin 14.6 g/dL (14.0-18.0); Lymphocyte % 10.8 %; Mean Corpuscular HGB Conc 34 g/dL (31-36); Mean Corpuscular Hemoglobin 33 pg (27-31); Mean Corpuscular Volume 98 fL (80-94); Mean Platelet Volume 8.6 fL (7.4-10.4); Nucleated Red Blood Cells % 0.1; Platelet Count 144 10^3/uL (150-450); Red Blood Count 4.38 10^6 /uL (4.18-5.48); Red Cell Distribution Width 14 % (10-15); White Blood Count 6.3 10^3/uL (3.5-10.8)
[2021-09-15 11:11] LABS: Urine Appearance Clear; Urine Bilirubin Negative (Negative); Urine Blood Negative (Negative); Urine Color Yellow; Urine Glucose Negative (Negative); Urine Ketones Negative (Negative); Urine Nitrite Negative (Negative); Urine Protein Negative (Negative); Urine Specific Gravity 1.021 (1.002-1.030); Urine Urobilinogen Negative (Negative)
[2021-09-15 11:12] LABS: Albumin 4.4 g/dL (3.2-5.2); Albumin/Globulin Ratio 1.4 (1-3); Calcium 9.4 mg/dL (8.6-10.3); Globulin 3.2 g/dL (2-4); Potassium 3.9 mmol/L (3.5-5.0); Total Bilirubin 0.6 mg/dL (0.2-1.0); Total Protein 7.6 g/dL (6.4-8.9); eGFR CKD-EPI 54.3 (>60)
[2021-09-15 11:14] LABS: INR 1.08 (0.86-1.15)
[2021-09-15] MEDS ORDERED: HYDROcodone/ACETAMIN 5/325 mg TAB PO ONE (14:08)
[2021-09-15] MEDS ORDERED: NS 0.9% 1000 ml BAG 1,000 ML IV SCH (18:00)
[2021-09-15 18:10] LABS: TSH Ultra Thyroid Stim Horm 1.9 mcIU/mL (0.34-5.60)
[2021-09-15 18:21] LABS: Folate 6.65 ng/mL (5.90-24.80)
[2021-09-15] MEDS: Heparin 5000 UNITS/ML 1 mL VIAL SUBCUT SCH (21:55)
[2021-09-15] MEDS: ORPHENADRINE CITRATE 100 MG PO SCH (21:55)
[2021-09-15] MEDS: Lidocaine Patch REMOVE NOTE PATCH OFF SCH (21:55)
[2021-09-15 22:59] LABS: Rapid COVID-19 Molecular Detected (Undetected)
[2021-09-16] MEDS ORDERED: Remdesivir 100 mg Vial 200 MG in NS 0.9% 250 ml 210 ML IV ONE (00:05)
[2021-09-16 01:17] LABS: INR 1.09 (0.86-1.15)
[2021-09-16 01:27] LABS: Albumin 3.8 g/dL (3.2-5.2); Albumin/Globulin Ratio 1.4 (1-3); Calcium 8.6 mg/dL (8.6-10.3); Globulin 2.8 g/dL (2-4); Potassium 4.2 mmol/L (3.5-5.0); Total Bilirubin 0.5 mg/dL (0.2-1.0); Total Protein 6.6 g/dL (6.4-8.9); eGFR CKD-EPI 59.9 (>60)
[2021-09-16] MEDS: IPRATROPIUM BR (NF)0.03% NASAL 1 SPRAY BTL BOTH NARES SCH ×4 (04:48→19:54)
[2021-09-16] MEDS: Heparin 5000 UNITS/ML 1 mL VIAL SUBCUT SCH (05:19)
[2021-09-16 06:03] LABS: ABS Lymphocytes 0.4 10^3/ul (1.0-4.8); ABS Monocytes 0.2 10^3/ul (0-0.8); ABS Neutrophils 4.1 10^3/ul (1.5-7.7); Eosinophil % 0.1 %; Hematocrit 40 % (42-52); Hemoglobin 13.5 g/dL (14.0-18.0); Mean Corpuscular HGB Conc 34 g/dL (31-36); Mean Corpuscular Hemoglobin 33 pg (27-31); Mean Corpuscular Volume 97 fL (80-94); Mean Platelet Volume 8.5 fL (7.4-10.4); Platelet Count 113 10^3/uL (150-450); Red Blood Count 4.08 10^6 /uL (4.18-5.48); Red Cell Distribution Width 14 % (10-15); White Blood Count 4.8 10^3/uL (3.5-10.8)
[2021-09-16 06:31] LABS: Calcium 8.5 mg/dL (8.6-10.3); Potassium 4.4 mmol/L (3.5-5.0)
[2021-09-16] MEDS: Nystatin TOP POWDER 15 GM BTL TOPICAL SCH ×4 (07:08→19:54)
[2021-09-16] MEDS: Cholecalciferol (VIT D3) 1,000 unit TAB PO SCH (07:55)
[2021-09-16] MEDS: Lidocaine PATCH 5% PATCH TRANSDERM PRN (07:55)
[2021-09-16] MEDS: ORPHENADRINE CITRATE 100 MG PO SCH ×3 (07:56→19:53)
[2021-09-16] MEDS: Enoxaparin 40 MG/0.4 ML SYR SUBCUT SCH (09:24)
[2021-09-16] MEDS: HYDROcodone/ACETAMIN 5/325 mg TAB PO PRN (19:52)
[2021-09-16] MEDS: Lidocaine Patch REMOVE NOTE PATCH OFF SCH (19:53)
[2021-09-17 06:41] LABS: INR 1.06 (0.86-1.15)
[2021-09-17 06:54] LABS: Albumin 3.8 g/dL (3.2-5.2); Albumin/Globulin Ratio 1.2 (1-3); Globulin 3.1 g/dL (2-4); Potassium 4.2 mmol/L (3.5-5.0); Total Bilirubin 0.5 mg/dL (0.2-1.0); Total Protein 6.9 g/dL (6.4-8.9); eGFR CKD-EPI 61.1 (>60)
[2021-09-17] MEDS: Remdesivir 100 mg Vial 100 MG in NS 0.9% 250 ml 230 ML IV SCH (08:58)
[2021-09-17] MEDS: Nystatin TOP POWDER 15 GM BTL TOPICAL SCH ×3 (09:01→21:14)
[2021-09-17] MEDS: Enoxaparin 40 MG/0.4 ML SYR SUBCUT SCH (09:02)
[2021-09-17] MEDS: Cholecalciferol (VIT D3) 1,000 unit TAB PO SCH (09:02)
[2021-09-17] MEDS: Lidocaine PATCH 5% PATCH TRANSDERM PRN (09:03)
[2021-09-17] MEDS: IPRATROPIUM BR (NF)0.03% NASAL 1 SPRAY BTL BOTH NARES SCH ×3 (10:02→21:14)
[2021-09-17] MEDS: ORPHENADRINE CITRATE 100 MG PO SCH ×3 (10:03→22:07)
[2021-09-17] MEDS: Lidocaine Patch REMOVE NOTE PATCH OFF SCH (21:14)
[2021-09-18] MEDS: HYDROcodone/ACETAMIN 5/325 mg TAB PO PRN ×2 (04:11→21:01)
[2021-09-18 06:34] LABS: INR 1.09 (0.86-1.15)
[2021-09-18 06:49] LABS: Albumin 3.6 g/dL (3.2-5.2); Calcium 8.8 mg/dL (8.6-10.3); Potassium 3.9 mmol/L (3.5-5.0); Total Protein 6.5 g/dL (6.4-8.9); eGFR CKD-EPI 70.4 (>60)
[2021-09-18 06:50] LABS: Albumin/Globulin Ratio 1.2 (1-3); Globulin 2.9 g/dL (2-4); Total Bilirubin 0.4 mg/dL (0.2-1.0)
[2021-09-18] MEDS: Cholecalciferol (VIT D3) 1,000 unit TAB PO SCH (10:27)
[2021-09-18] MEDS: Nystatin TOP POWDER 15 GM BTL TOPICAL SCH ×3 (10:28→21:02)
[2021-09-18] MEDS: Remdesivir 100 mg Vial 100 MG in NS 0.9% 250 ml 230 ML IV SCH (10:28)
[2021-09-18] MEDS: Enoxaparin 40 MG/0.4 ML SYR SUBCUT SCH (10:28)
[2021-09-18] MEDS: IPRATROPIUM BR (NF)0.03% NASAL 1 SPRAY BTL BOTH NARES SCH ×2 (10:46→16:05)
[2021-09-18] MEDS: ORPHENADRINE CITRATE 100 MG PO SCH ×3 (10:46→21:04)
[2021-09-18] MEDS: Lidocaine Patch REMOVE NOTE PATCH OFF SCH (21:00)
[2021-09-19] MEDS: IPRATROPIUM BR (NF)0.03% NASAL 1 SPRAY BTL BOTH NARES SCH ×4 (00:56→21:02)
[2021-09-19 06:59] LABS: ABS Lymphocytes 1.8 10^3/ul (1.0-4.8); ABS Monocytes 0.4 10^3/ul (0-0.8); ABS Neutrophils 3.4 10^3/ul (1.5-7.7); Eosinophil % 0.1 %; Hematocrit 39 % (42-52); Hemoglobin 13.4 g/dL (14.0-18.0); Lymphocyte % 32.8 %; Mean Corpuscular HGB Conc 35 g/dL (31-36); Mean Corpuscular Hemoglobin 34 pg (27-31); Mean Corpuscular Volume 96 fL (80-94); Mean Platelet Volume 9.1 fL (7.4-10.4); Platelet Count 149 10^3/uL (150-450); Red Blood Count 4.02 10^6 /uL (4.18-5.48); Red Cell Distribution Width 14 % (10-15); White Blood Count 5.6 10^3/uL (3.5-10.8)
[2021-09-19 07:05] LABS: INR 1.02 (0.86-1.15)
[2021-09-19 07:15] LABS: Albumin 3.8 g/dL (3.2-5.2); Albumin/Globulin Ratio 1.2 (1-3); Calcium 9.1 mg/dL (8.6-10.3); Globulin 3.1 g/dL (2-4); Potassium 4.2 mmol/L (3.5-5.0); Total Bilirubin 0.4 mg/dL (0.2-1.0); Total Protein 6.9 g/dL (6.4-8.9)
[2021-09-19] MEDS: Remdesivir 100 mg Vial 100 MG in NS 0.9% 250 ml 230 ML IV SCH (09:54)
[2021-09-19] MEDS: Cholecalciferol (VIT D3) 1,000 unit TAB PO SCH (09:58)
[2021-09-19] MEDS: Enoxaparin 40 MG/0.4 ML SYR SUBCUT SCH (09:59)
[2021-09-19] MEDS: Nystatin TOP POWDER 15 GM BTL TOPICAL SCH ×3 (09:59→21:02)
[2021-09-19] MEDS: ORPHENADRINE CITRATE 100 MG PO SCH ×3 (09:59→21:03)
[2021-09-19] MEDS: Lidocaine Patch REMOVE NOTE PATCH OFF SCH (21:03)
[2021-09-20 07:02] LABS: INR 1.07 (0.86-1.15)
[2021-09-20 07:20] LABS: Albumin 3.6 g/dL (3.2-5.2); Albumin/Globulin Ratio 1.3 (1-3); Globulin 2.7 g/dL (2-4); Potassium 4.2 mmol/L (3.5-5.0); Total Bilirubin 0.4 mg/dL (0.2-1.0); Total Protein 6.3 g/dL (6.4-8.9); eGFR CKD-EPI 61.7 (>60)
[2021-09-20] MEDS: Cholecalciferol (VIT D3) 1,000 unit TAB PO SCH (09:45)
[2021-09-20] MEDS: Remdesivir 100 mg Vial 100 MG in NS 0.9% 250 ml 230 ML IV SCH (09:45)
[2021-09-20] MEDS: Enoxaparin 40 MG/0.4 ML SYR SUBCUT SCH (09:45)
[2021-09-20] MEDS: ORPHENADRINE CITRATE 100 MG PO SCH ×3 (11:04→20:46)
[2021-09-20] MEDS: IPRATROPIUM BR (NF)0.03% NASAL 1 SPRAY BTL BOTH NARES SCH ×3 (11:04→20:44)
[2021-09-20] MEDS: Nystatin TOP POWDER 15 GM BTL TOPICAL SCH ×3 (11:04→20:44)
[2021-09-20] MEDS ORDERED: Saline NASAL SPRAY 0.65% BTL BOTH NARES PRN (11:11)
[2021-09-20] MEDS: Senna TAB 8.6 mg TAB PO SCH (20:43)
[2021-09-20] MEDS: Lidocaine Patch REMOVE NOTE PATCH OFF SCH (20:45)
[2021-09-21 09:18] LABS: INR 1.06 (0.86-1.15)
[2021-09-21 09:27] LABS: Albumin 3.9 g/dL (3.2-5.2); Albumin/Globulin Ratio 1.5 (1-3); Calcium 9.2 mg/dL (8.6-10.3); Globulin 2.6 g/dL (2-4); Potassium 3.9 mmol/L (3.5-5.0); Total Bilirubin 0.6 mg/dL (0.2-1.0); Total Protein 6.5 g/dL (6.4-8.9); eGFR CKD-EPI 61.7 (>60)
[2021-09-21] MEDS: Cholecalciferol (VIT D3) 1,000 unit TAB PO SCH (10:41)
[2021-09-21] MEDS: ORPHENADRINE CITRATE 100 MG PO SCH ×3 (10:42→20:15)
[2021-09-21] MEDS: Enoxaparin 40 MG/0.4 ML SYR SUBCUT SCH (10:42)
[2021-09-21] MEDS: IPRATROPIUM BR (NF)0.03% NASAL 1 SPRAY BTL BOTH NARES SCH ×3 (10:42→20:15)
[2021-09-21] MEDS: Nystatin TOP POWDER 15 GM BTL TOPICAL SCH ×3 (10:43→20:14)
[2021-09-21] MEDS: Remdesivir 100 mg Vial 100 MG in NS 0.9% 250 ml 230 ML IV SCH (10:43)
[2021-09-21] MEDS ORDERED: Benzocaine/Menthol LOZ MT PRN (11:08)
[2021-09-21] MEDS: HYDROcodone/ACETAMIN 5/325 mg TAB PO PRN (15:58)
[2021-09-21] MEDS: Senna TAB 8.6 mg TAB PO SCH (20:13)
[2021-09-21] MEDS: Lidocaine Patch REMOVE NOTE PATCH OFF SCH (20:15)
[2021-09-22] MEDS: Enoxaparin 40 MG/0.4 ML SYR SUBCUT SCH (09:53)
[2021-09-22] MEDS: Lidocaine PATCH 5% PATCH TRANSDERM PRN (09:53)
[2021-09-22] MEDS: Cholecalciferol (VIT D3) 1,000 unit TAB PO SCH (09:54)
[2021-09-22] MEDS: ORPHENADRINE CITRATE 100 MG PO SCH ×2 (09:55→14:11)
[2021-09-22] MEDS: IPRATROPIUM BR (NF)0.03% NASAL 1 SPRAY BTL BOTH NARES SCH ×2 (09:55→14:10)
[2021-09-22] MEDS: Nystatin TOP POWDER 15 GM BTL TOPICAL SCH ×2 (09:55→14:51)
[2021-09-22] MEDS ORDERED: PAIN RELIEVING RUB (MENTHOL/SALICYLATE) 1 APPLIC TUBE TOPICAL PRN (10:08)
[2021-09-22 14:43] VITALS: BP 113/57
== END 2021-09-22 14:31 | disposition swing bed (61) | DRG 177 ==
LOC: ED 10:18 → EDHOLD 10:18 → MED 09-16 02:16 → SUATTDRO 09-17 10:23
PROVIDERS: ADMIT Internal Medicine; ATTEND Internal Medicine

== ENCOUNTER 2021-09-22 14:35 | Inpatient (IN) ==
[2021-09-22] MEDS ORDERED: Ondansetron 4 mg VIAL 2 MG/ML 2 ml VIAL IV PRN (14:49)
[2021-09-22] MEDS ORDERED: Enoxaparin 40 MG/0.4 ML SYR SUBCUT SCH (15:00)
[2021-09-22] MEDS: PAIN RELIEVING RUB (MENTHOL/SALICYLATE) 1 APPLIC TUBE TOPICAL PRN (17:08)
[2021-09-22] MEDS: Nystatin TOP POWDER 15 GM BTL TOPICAL SCH (21:49)
[2021-09-22] MEDS: Saline NASAL SPRAY 0.65% BTL BOTH NARES PRN (21:49)
[2021-09-22] MEDS: Senna TAB 8.6 mg TAB PO SCH (21:49)
[2021-09-22] MEDS: Lidocaine Patch REMOVE NOTE PATCH OFF SCH ×2 (21:51)
[2021-09-22] MEDS: ORPHENADRINE CITRATE 100 MG PO SCH (23:06)
[2021-09-22] MEDS: IPRATROPIUM BR (NF)0.03% NASAL 1 SPRAY BTL BOTH NARES SCH (23:06)
[2021-09-23] MEDS: Lidocaine PATCH 5% PATCH TRANSDERM SCH (08:38)
[2021-09-23] MEDS: PAIN RELIEVING RUB (MENTHOL/SALICYLATE) 1 APPLIC TUBE TOPICAL PRN ×2 (08:39→20:42)
[2021-09-23] MEDS: Cholecalciferol (VIT D3) 1,000 unit TAB PO SCH (08:39)
[2021-09-23] MEDS: Enoxaparin 40 MG/0.4 ML SYR SUBCUT SCH (08:40)
[2021-09-23] MEDS: Nystatin TOP POWDER 15 GM BTL TOPICAL SCH ×3 (08:40→20:37)
[2021-09-23] MEDS: ORPHENADRINE CITRATE 100 MG PO SCH (08:42)
[2021-09-23] MEDS: IPRATROPIUM BR (NF)0.03% NASAL 1 SPRAY BTL BOTH NARES SCH (08:42)
[2021-09-23] MEDS: Lidocaine Patch REMOVE NOTE PATCH OFF SCH ×2 (20:09→20:39)
[2021-09-23] MEDS: Senna TAB 8.6 mg TAB PO SCH (20:36)
[2021-09-24] MEDS: PAIN RELIEVING RUB (MENTHOL/SALICYLATE) 1 APPLIC TUBE TOPICAL PRN ×3 (04:52→14:47)
[2021-09-24] MEDS: Lidocaine PATCH 5% PATCH TRANSDERM SCH (07:59)
[2021-09-24] MEDS: Enoxaparin 40 MG/0.4 ML SYR SUBCUT SCH (07:59)
[2021-09-24] MEDS: Cholecalciferol (VIT D3) 1,000 unit TAB PO SCH (08:00)
[2021-09-24] MEDS: Nystatin TOP POWDER 15 GM BTL TOPICAL SCH ×3 (08:01→20:35)
[2021-09-24] MEDS: Senna TAB 8.6 mg TAB PO SCH (20:32)
[2021-09-24] MEDS: Lidocaine Patch REMOVE NOTE PATCH OFF SCH ×2 (20:34→20:35)
[2021-09-25] MEDS: Cholecalciferol (VIT D3) 1,000 unit TAB PO SCH (08:23)
[2021-09-25] MEDS: Lidocaine PATCH 5% PATCH TRANSDERM SCH (08:25)
[2021-09-25] MEDS: Nystatin TOP POWDER 15 GM BTL TOPICAL SCH ×3 (08:25→21:38)
[2021-09-25] MEDS: Enoxaparin 40 MG/0.4 ML SYR SUBCUT SCH (08:26)
[2021-09-25] MEDS: Saline NASAL SPRAY 0.65% BTL BOTH NARES PRN (15:14)
[2021-09-25] MEDS: Senna TAB 8.6 mg TAB PO SCH (21:36)
[2021-09-25] MEDS: Lidocaine Patch REMOVE NOTE PATCH OFF SCH ×2 (21:37)
[2021-09-26] MEDS: Lidocaine PATCH 5% PATCH TRANSDERM SCH (09:59)
[2021-09-26] MEDS: Cholecalciferol (VIT D3) 1,000 unit TAB PO SCH (09:59)
[2021-09-26] MEDS: Nystatin TOP POWDER 15 GM BTL TOPICAL SCH ×3 (10:01→21:17)
[2021-09-26] MEDS: Enoxaparin 40 MG/0.4 ML SYR SUBCUT SCH (10:02)
[2021-09-26] MEDS: Senna TAB 8.6 mg TAB PO SCH (21:15)
[2021-09-26] MEDS: Lidocaine Patch REMOVE NOTE PATCH OFF SCH ×2 (21:17→21:19)
[2021-09-27] MEDS: Lidocaine PATCH 5% PATCH TRANSDERM SCH (08:22)
[2021-09-27] MEDS: PAIN RELIEVING RUB (MENTHOL/SALICYLATE) 1 APPLIC TUBE TOPICAL PRN (08:22)
[2021-09-27] MEDS: Nystatin TOP POWDER 15 GM BTL TOPICAL SCH ×3 (08:24→22:22)
[2021-09-27] MEDS: Cholecalciferol (VIT D3) 1,000 unit TAB PO SCH (08:26)
[2021-09-27] MEDS: Enoxaparin 40 MG/0.4 ML SYR SUBCUT SCH (08:28)
[2021-09-27] MEDS: Senna TAB 8.6 mg TAB PO SCH (22:15)
[2021-09-27] MEDS: Lidocaine Patch REMOVE NOTE PATCH OFF SCH ×2 (22:17→22:22)
[2021-09-28] MEDS: Lidocaine PATCH 5% PATCH TRANSDERM SCH (08:14)
[2021-09-28] MEDS: PAIN RELIEVING RUB (MENTHOL/SALICYLATE) 1 APPLIC TUBE TOPICAL PRN ×3 (08:14→21:16)
[2021-09-28] MEDS: Enoxaparin 40 MG/0.4 ML SYR SUBCUT SCH (08:14)
[2021-09-28] MEDS: Cholecalciferol (VIT D3) 1,000 unit TAB PO SCH (08:15)
[2021-09-28] MEDS: Nystatin TOP POWDER 15 GM BTL TOPICAL SCH ×3 (08:16→21:12)
[2021-09-28] MEDS: Senna TAB 8.6 mg TAB PO SCH (21:12)
[2021-09-28] MEDS: Lidocaine Patch REMOVE NOTE PATCH OFF SCH ×2 (21:15)
[2021-09-29] MEDS: Enoxaparin 40 MG/0.4 ML SYR SUBCUT SCH (09:19)
[2021-09-29] MEDS: Nystatin TOP POWDER 15 GM BTL TOPICAL SCH ×3 (09:19→20:11)
[2021-09-29] MEDS: PAIN RELIEVING RUB (MENTHOL/SALICYLATE) 1 APPLIC TUBE TOPICAL PRN ×2 (09:19→20:17)
[2021-09-29] MEDS: Lidocaine PATCH 5% PATCH TRANSDERM SCH (09:20)
[2021-09-29] MEDS: Cholecalciferol (VIT D3) 1,000 unit TAB PO SCH (09:25)
[2021-09-29 11:35] LABS: ABS Basophils 0.2 10^3/ul (0-0.2); ABS Lymphocytes 3.5 10^3/ul (1.0-4.8); ABS Monocytes 1.1 10^3/ul (0-0.8); ABS Neutrophils 9.3 10^3/ul (1.5-7.7); Eosinophil % 0.2 %; Hematocrit 40 % (42-52); Hemoglobin 13.4 g/dL (14.0-18.0); Lymphocyte % 24.7 %; Mean Corpuscular HGB Conc 34 g/dL (31-36); Mean Corpuscular Hemoglobin 32 pg (27-31); Mean Corpuscular Volume 96 fL (80-94); Mean Platelet Volume 8.3 fL (7.4-10.4); Nucleated Red Blood Cells % 0.1; Platelet Count 181 10^3/uL (150-450); Red Blood Count 4.15 10^6 /uL (4.18-5.48); Red Cell Distribution Width 14 % (10-15); White Blood Count 14.1 10^3/uL (3.5-10.8)
[2021-09-29 11:57] LABS: Calcium 9.2 mg/dL (8.6-10.3); Potassium 4.1 mmol/L (3.5-5.0); eGFR CKD-EPI 61.7 (>60)
[2021-09-29] MEDS: Lidocaine Patch REMOVE NOTE PATCH OFF SCH ×2 (20:10→20:11)
[2021-09-29] MEDS: Senna TAB 8.6 mg TAB PO SCH (20:11)
[2021-09-30] MEDS: Lidocaine PATCH 5% PATCH TRANSDERM SCH (08:53)
[2021-09-30] MEDS: Enoxaparin 40 MG/0.4 ML SYR SUBCUT SCH (08:54)
[2021-09-30] MEDS: Cholecalciferol (VIT D3) 1,000 unit TAB PO SCH (08:54)
[2021-09-30] MEDS: PAIN RELIEVING RUB (MENTHOL/SALICYLATE) 1 APPLIC TUBE TOPICAL PRN ×2 (08:55→20:53)
[2021-09-30] MEDS: Nystatin TOP POWDER 15 GM BTL TOPICAL SCH ×3 (08:55→20:54)
[2021-09-30] MEDS: Senna TAB 8.6 mg TAB PO SCH (20:53)
[2021-09-30] MEDS: Lidocaine Patch REMOVE NOTE PATCH OFF SCH ×2 (20:54)
[2021-10-01] MEDS: HYDROcodone/ACETAMIN 5/325 mg TAB PO PRN (02:51)
[2021-10-01] MEDS: Lidocaine PATCH 5% PATCH TRANSDERM SCH (09:21)
[2021-10-01] MEDS: Enoxaparin 40 MG/0.4 ML SYR SUBCUT SCH (09:22)
[2021-10-01] MEDS: Cholecalciferol (VIT D3) 1,000 unit TAB PO SCH (09:23)
[2021-10-01] MEDS: Nystatin TOP POWDER 15 GM BTL TOPICAL SCH ×3 (09:24→21:24)
[2021-10-01] MEDS: PAIN RELIEVING RUB (MENTHOL/SALICYLATE) 1 APPLIC TUBE TOPICAL PRN ×2 (09:24→21:38)
[2021-10-01] MEDS: Senna TAB 8.6 mg TAB PO SCH (21:24)
[2021-10-01] MEDS: Lidocaine Patch REMOVE NOTE PATCH OFF SCH ×2 (21:28)
[2021-10-02] MEDS: Enoxaparin 40 MG/0.4 ML SYR SUBCUT SCH (09:04)
[2021-10-02] MEDS: Cholecalciferol (VIT D3) 1,000 unit TAB PO SCH (09:05)
[2021-10-02] MEDS: Nystatin TOP POWDER 15 GM BTL TOPICAL SCH ×3 (09:06→21:07)
[2021-10-02] MEDS: PAIN RELIEVING RUB (MENTHOL/SALICYLATE) 1 APPLIC TUBE TOPICAL PRN ×2 (09:06→21:08)
[2021-10-02] MEDS: Lidocaine PATCH 5% PATCH TRANSDERM SCH (09:06)
[2021-10-02] MEDS: Senna TAB 8.6 mg TAB PO SCH (21:07)
[2021-10-02] MEDS: Lidocaine Patch REMOVE NOTE PATCH OFF SCH ×2 (21:09)
[2021-10-03] MEDS: HYDROcodone/ACETAMIN 5/325 mg TAB PO PRN (05:21)
[2021-10-03 07:15] VITALS: BP 133/57
[2021-10-03] MEDS: Enoxaparin 40 MG/0.4 ML SYR SUBCUT SCH (08:45)
[2021-10-03] MEDS: Lidocaine PATCH 5% PATCH TRANSDERM SCH (08:46)
[2021-10-03] MEDS: Cholecalciferol (VIT D3) 1,000 unit TAB PO SCH (08:47)
[2021-10-03] MEDS: Nystatin TOP POWDER 15 GM BTL TOPICAL SCH (08:50)
== END 2021-10-03 10:00 | disposition home or self-care (01) | DRG 177 ==
LOC: MED 14:58 → SUATTDRO 14:58
PROVIDERS: ADMIT Internal Medicine; ATTEND Hospitalist

== ENCOUNTER 2021-10-03 10:18 | Inpatient (IN) ==
[2021-10-03] MEDS ORDERED: HYDROcodone/ACETAMIN 5/325 mg TAB PO PRN (10:47)
[2021-10-03] MEDS ORDERED: Senna TAB 8.6 mg TAB PO PRN (10:47)
[2021-10-03] MEDS: Enoxaparin 40 MG/0.4 ML SYR SUBCUT SCH (11:24)
[2021-10-03] MEDS: Lidocaine PATCH 5% PATCH TRANSDERM SCH (11:24)
[2021-10-03] MEDS: Nystatin TOP POWDER 15 GM BTL TOPICAL SCH (21:23)
[2021-10-03] MEDS: Lidocaine Patch REMOVE NOTE PATCH OFF SCH (21:23)
[2021-10-04] MEDS ORDERED: Omeprazole 20 mg CAP (NF) PO SCH (06:00)
[2021-10-04] MEDS: Enoxaparin 40 MG/0.4 ML SYR SUBCUT SCH (10:04)
[2021-10-04] MEDS: Lidocaine PATCH 5% PATCH TRANSDERM SCH (10:05)
[2021-10-04] MEDS: Cholecalciferol (VIT D3) 1,000 unit TAB PO SCH (10:06)
[2021-10-04] MEDS: Nystatin TOP POWDER 15 GM BTL TOPICAL SCH ×2 (10:07→20:18)
[2021-10-04] MEDS: Lidocaine Patch REMOVE NOTE PATCH OFF SCH (20:18)
[2021-10-05] MEDS: Enoxaparin 40 MG/0.4 ML SYR SUBCUT SCH (09:21)
[2021-10-05] MEDS: Lidocaine PATCH 5% PATCH TRANSDERM SCH (09:21)
[2021-10-05] MEDS: Cholecalciferol (VIT D3) 1,000 unit TAB PO SCH (09:21)
[2021-10-05] MEDS: Nystatin TOP POWDER 15 GM BTL TOPICAL SCH ×2 (09:21→21:02)
[2021-10-05] MEDS: Lidocaine Patch REMOVE NOTE PATCH OFF SCH (21:01)
[2021-10-06 07:48] VITALS: BP 116/54
[2021-10-06] MEDS: Lidocaine PATCH 5% PATCH TRANSDERM SCH (09:18)
[2021-10-06] MEDS: Enoxaparin 40 MG/0.4 ML SYR SUBCUT SCH (09:18)
[2021-10-06] MEDS: Cholecalciferol (VIT D3) 1,000 unit TAB PO SCH (09:19)
[2021-10-06] MEDS: Nystatin TOP POWDER 15 GM BTL TOPICAL SCH (09:20)
== END 2021-10-06 15:30 | disposition home or self-care (01) | DRG 178 ==
LOC: SUATTDRO 10:18 → MED 10:18
PROVIDERS: ADMIT Internal Medicine; ATTEND Hospitalist

== ENCOUNTER 2022-12-03 10:47 | Inpatient (IN) ==
[2022-12-03] MEDS ORDERED: Lactated Ringers 1000 ml BAG 1,000 ML IV ONE (11:30)
[2022-12-03 12:03] LABS: Venous Bicarbonate HCO3 26.2 mmol/L (24-28)
[2022-12-03 12:11] LABS: White Blood Count 11.3 10^3/uL (3.5-10.8)
[2022-12-03 12:12] LABS: Hematocrit 41 % (42-52); Hemoglobin 13.3 g/dL (14.0-18.0); Mean Corpuscular HGB Conc 33 g/dL (31-36); Mean Corpuscular Hemoglobin 33 pg (27-31); Mean Corpuscular Volume 101 fL (80-94); Red Blood Count 4.03 10^6 /uL (4.18-5.48); Red Cell Distribution Width 15 % (10-15)
[2022-12-03 12:30] LABS: Macrocytosis 1+
[2022-12-03 12:31] LABS: ABS Lymphocytes 0.8 10^3/ul (1.0-4.8); ABS Monocytes 1.1 10^3/ul (0-0.8); ABS Neutrophils 9.3 10^3/ul (1.5-7.7); Eosinophil % 0.2 %; Lymphocyte % 7.2 %; Platelet Count 91 10^3/uL (150-450)
[2022-12-03 13:03] LABS: High Sensitivity Troponin 1 Hr 4 pg/mL (<20)
[2022-12-03 13:08] LABS: Albumin 3.7 g/dL (3.2-5.2); Albumin/Globulin Ratio 1.5 (1-3); Calcium 8.5 mg/dL (8.6-10.3); Creatinine, Serum 1.41 mg/dL (0.67-1.17); Globulin 2.4 g/dL (2-4); Magnesium 1.9 mg/dL (1.9-2.7); Total Bilirubin 0.7 mg/dL (0.2-1.0); Total Protein 6.1 g/dL (6.4-8.9); eGFR CKD-EPI 48.5 (>60)
[2022-12-03 17:06] LABS: Urine Appearance Clear; Urine Bilirubin Negative (Negative); Urine Blood 1+ (Negative); Urine Color Yellow; Urine Glucose Negative (Negative); Urine Ketones Negative (Negative); Urine Nitrite Negative (Negative); Urine Protein 1+(30 mg/dL) (Negative); Urine Specific Gravity 1.011 (1.002-1.030); Urine Urobilinogen Negative (Negative)
[2022-12-03 17:52] LABS: Urine Bacteria Absent (Absent); Urine Red Blood Cell Trace(0-2/hpf) (Absent); Urine Squamous Epithelial Cell Present (Absent); Urine White Blood Cell 1+(6-10/hpf) (Absent)
[2022-12-03] MEDS ORDERED: Lactated Ringers 1000 ml BAG 1,000 ML IV SCH (19:00)
[2022-12-03] MEDS ORDERED: Acetaminophen IV 1 GM/100ML 1,000 MG/100 ML BAG IV PRN (19:25)
[2022-12-03] MEDS ORDERED: Droperidol 5 MG/2 ML 2 ML VIAL IV ONE (20:05)
[2022-12-03] MEDS: Pantoprazole VIAL 40 MG VIAL IV SCH (20:35)
[2022-12-03] MEDS: Enoxaparin 40 MG/0.4 ML SYR SUBCUT SCH (20:41)
[2022-12-04] MEDS ORDERED: Haloperidol 5 mg/ml SDV IV/IM 5 MG/ML AMP IV SLOW PU ONE (00:46)
[2022-12-04] MEDS ORDERED: OLANZapine 10 mg TAB*ODT ONE (03:19)
[2022-12-04 06:23] LABS: Hematocrit 38 % (42-52); Hemoglobin 12.8 g/dL (14.0-18.0); Mean Corpuscular HGB Conc 33 g/dL (31-36); Mean Corpuscular Hemoglobin 33 pg (27-31); Mean Corpuscular Volume 99 fL (80-94); Mean Platelet Volume 8.4 fL (7.4-10.4); Platelet Count 67 10^3/uL (150-450); Red Blood Count 3.87 10^6 /uL (4.18-5.48); Red Cell Distribution Width 16 % (10-15)
[2022-12-04 06:37] LABS: Calcium 8.7 mg/dL (8.6-10.3); Creatinine, Serum 1.28 mg/dL (0.67-1.17); HDL Cholesterol 42.2 mg/dL; Magnesium 1.9 mg/dL (1.9-2.7); Potassium 3.7 mmol/L (3.5-5.0); eGFR CKD-EPI 54.5 (>60)
[2022-12-04 06:47] LABS: TSH Ultra Thyroid Stim Horm 3.04 mcIU/mL (0.34-5.60)
[2022-12-04 09:25] LABS: C Reactive Protein 155.91 mg/L (<8.01)
[2022-12-04] MEDS ORDERED: Lactated Ringers 1000 ml BAG 1,000 ML IV SCH ×2 (17:40→21:00)
[2022-12-04] MEDS: cefTRIAXone 2 gm/50 mL D5W 2 GM/50 ML BAG IV SCH (18:07)
[2022-12-04] MEDS: Pantoprazole VIAL 40 MG VIAL IV SCH (21:54)
[2022-12-04] MEDS: Acetaminophen IV 1 GM/100ML 1,000 MG/100 ML BAG IV SCH (21:54)
[2022-12-04] MEDS: Enoxaparin 40 MG/0.4 ML SYR SUBCUT SCH (21:55)
[2022-12-04] MEDS: metroNIDAZOLE IV 500 MG/100ML 500 MG/100 ML BAG IVPB SCH (22:25)
[2022-12-05] MEDS: Levothyroxine 100 MCG/5 ML VIAL IV SCH (05:26)
[2022-12-05] MEDS: metroNIDAZOLE IV 500 MG/100ML 500 MG/100 ML BAG IVPB SCH ×3 (05:32→22:30)
[2022-12-05] MEDS ORDERED: Levothyroxine 100 MCG/5 ML VIAL IV SCH (06:00)
[2022-12-05 07:13] LABS: Hematocrit 36 % (42-52); Hemoglobin 11.9 g/dL (14.0-18.0); Mean Corpuscular HGB Conc 33 g/dL (31-36); Mean Corpuscular Hemoglobin 33 pg (27-31); Mean Corpuscular Volume 100 fL (80-94); Mean Platelet Volume 8.5 fL (7.4-10.4); Platelet Count 75 10^3/uL (150-450); Red Cell Distribution Width 16 % (10-15); White Blood Count 5.2 10^3/uL (3.5-10.8)
[2022-12-05 07:26] LABS: Calcium 8.3 mg/dL (8.6-10.3); Creatinine, Serum 1.69 mg/dL (0.67-1.17); eGFR CKD-EPI 39.1 (>60)
[2022-12-05] MEDS: Acetaminophen IV 1 GM/100ML 1,000 MG/100 ML BAG IV SCH ×3 (09:57→20:46)
[2022-12-05] MEDS: Lactated Ringers 1000 ml BAG 1,000 ML IV SCH ×2 (10:09→22:31)
[2022-12-05] MEDS: cefTRIAXone 2 gm/50 mL D5W 2 GM/50 ML BAG IV SCH (17:00)
[2022-12-05] MEDS: Enoxaparin 40 MG/0.4 ML SYR SUBCUT SCH (20:38)
[2022-12-05] MEDS: Pantoprazole VIAL 40 MG VIAL IV SCH (20:40)
[2022-12-06] MEDS: Levothyroxine 100 MCG/5 ML VIAL IV SCH (06:12)
[2022-12-06] MEDS: metroNIDAZOLE IV 500 MG/100ML 500 MG/100 ML BAG IVPB SCH ×3 (06:12→22:49)
[2022-12-06] MEDS: Acetaminophen IV 1 GM/100ML 1,000 MG/100 ML BAG IV SCH ×3 (09:02→22:23)
[2022-12-06] MEDS: Lactated Ringers 1000 ml BAG 1,000 ML IV SCH ×2 (11:15→19:59)
[2022-12-06] MEDS: cefTRIAXone 2 gm/50 mL D5W 2 GM/50 ML BAG IV SCH (17:52)
[2022-12-06] MEDS: Pantoprazole VIAL 40 MG VIAL IV SCH (22:06)
[2022-12-07] MEDS: Lactated Ringers 1000 ml BAG 1,000 ML IV SCH ×2 (04:26→19:14)
[2022-12-07] MEDS: Levothyroxine 100 MCG/5 ML VIAL IV SCH (05:14)
[2022-12-07] MEDS: metroNIDAZOLE IV 500 MG/100ML 500 MG/100 ML BAG IVPB SCH ×3 (05:20→22:48)
[2022-12-07 07:14] LABS: Hematocrit 36 % (42-52); Mean Corpuscular HGB Conc 34 g/dL (31-36); Mean Corpuscular Hemoglobin 33 pg (27-31); Mean Corpuscular Volume 99 fL (80-94); Mean Platelet Volume 8.2 fL (7.4-10.4); Platelet Count 90 10^3/uL (150-450); Red Cell Distribution Width 16 % (10-15); White Blood Count 4.4 10^3/uL (3.5-10.8)
[2022-12-07 07:27] LABS: Calcium 8.4 mg/dL (8.6-10.3); Creatinine, Serum 0.95 mg/dL (0.67-1.17); Potassium 3.7 mmol/L (3.5-5.0)
[2022-12-07 08:51] LABS: ABS Eosinophils 0.1 10^3/ul (0-0.6); ABS Lymphocytes 1.3 10^3/ul (1.0-4.8); ABS Monocytes 0.3 10^3/ul (0-0.8); ABS Neutrophils 2.5 10^3/ul (1.5-7.7); Eosinophil % 3.1 %; Lymphocyte % 30.1 %; Nucleated Red Blood Cells % 0.2
[2022-12-07] MEDS: Acetaminophen IV 1 GM/100ML 1,000 MG/100 ML BAG IV SCH ×3 (09:27→22:16)
[2022-12-07] MEDS: cefTRIAXone 2 gm/50 mL D5W 2 GM/50 ML BAG IV SCH (18:02)
[2022-12-07] MEDS: Enoxaparin 30 MG/0.3 ML SYR SUBCUT SCH (18:05)
[2022-12-07] MEDS: Pantoprazole VIAL 40 MG VIAL IV SCH (22:00)
[2022-12-08] MEDS: Levothyroxine 100 MCG/5 ML VIAL IV SCH (05:21)
[2022-12-08] MEDS: metroNIDAZOLE IV 500 MG/100ML 500 MG/100 ML BAG IVPB SCH (05:29)
[2022-12-08] MEDS: Acetaminophen IV 1 GM/100ML 1,000 MG/100 ML BAG IV SCH ×2 (10:26→15:27)
[2022-12-08] MEDS: Enoxaparin 30 MG/0.3 ML SYR SUBCUT SCH (16:30)
[2022-12-09 07:12] VITALS: BP 159/79
== END 2022-12-09 09:25 | DRG 178 ==
LOC: ED 10:47 → EDHOLD 10:47 → MEDTELE 21:50 → SUATTDRO 12-04 13:57
PROVIDERS: ADMIT Internal Medicine; ATTEND Internal Medicine